=== PATIENT | male | born 1950 | race Caucasian/White ===

== ENCOUNTER → 2018-05-12 10:37 | Outpatient (CLI) | payer MEDICARE, OTHER, SELFPAY ==
--- NOTE | 2018-05-12 | DI.US.S_ITS ---
PROCEDURE: US ABD AORTA ANEURYSM SCREEN INDICATIONS: SCREENING AAA TECHNIQUE: Real time scanning was performed of the aorta and iliac arteries, with image documentation. COMPARISON: None. FINDINGS: Aorta: Proximal aortic diameter measures 2.0 cm. Mid-aorta measures 1.8 cm. Distal aortic diameter is 1.6 cm. Iliac arteries: Right common iliac artery measures 1.3 cm. Left common iliac artery measures 1.1 cm. IMPRESSION: Negative for aortic aneurysm Dictated by: Vladimir Boland M.D. on 05/12/2018 at 12:53 Approved by: Vladimir Boland M.D. on 05/12/2018 at 12:54
== END ==
PROVIDERS: Visit Provider Internal Medicine
DX: Z13.6 Encounter for screening for cardiovascular disorders (principal)
CPT/HCPCS: 76706

== ENCOUNTER → 2019-01-15 12:23 | Outpatient (CLI) | payer MEDICARE, OTHER, SELFPAY ==
--- NOTE | 2019-01-15 12:26 | DI.RAD.S_ITS ---
PROCEDURE: XR CHEST 2V INDICATIONS: cough TECHNIQUE: 2 views of the chest were acquired. COMPARISON: None. FINDINGS: Surgical changes and devices: None. Lungs and pleura: Lungs are clear. No pleural effusions or pneumothorax. There is asymmetric elevation of the right hemidiaphragm, likely chronic by appearance Mediastinum: Mediastinal contours are normal. Heart size is normal. Bones and chest wall: No suspicious bony abnormalities. Soft tissues appear unremarkable. IMPRESSION: Asymmetric right hemidiaphragm elevation, likely chronic. This results in mild right lung base atelectasis. No definite source of cough is seen. Dictated by: Kelvin Waters M.D. on 01/15/2019 at 12:48 Approved by: Kelvin Waters M.D. on 01/15/2019 at 12:48
== END ==
PROVIDERS: PCP Internal Medicine; Visit Provider Physician Assistant
DX: R05 Cough (principal); J98.11 Atelectasis
CPT/HCPCS: 71046

== ENCOUNTER → 2019-02-24 09:47 | Outpatient (CLI) | payer MEDICARE, OTHER, SELFPAY ==
--- NOTE | 2019-02-24 10:00 | DI.CT.S_ITS ---
PROCEDURE: CT SINUS SCREEN WO CON INDICATIONS: SINUSITIS TECHNIQUE: Noncontrast 3.0 mm axial images acquired from the frontal sinuses to the mid-sella, with coronal and sagittal reformats. For radiation dose reduction, the following was used: automated exposure control, adjustment of mA and/or kV according to patient size. COMPARISON: None. FINDINGS: Image quality: Excellent. Maxillary Sinuses: No bony remodeling or destruction. Sinuses are clear. Ethmoid Air Cells: No bony remodeling or destruction. Sinuses are clear. Sphenoid Sinuses: No bony remodeling or destruction. Sinuses are clear. Frontal Sinuses: No bony remodeling or destruction. Sinuses are clear. Ostiomeatal Complexes: Ostiomeatal complexes are patent. No Joanne cells. Miscellaneous: Visualized intra-orbital contents are normal. No moose bullosa or paradoxical turbinate curvature. Mild anterior lower leftward nasoseptal deviation without airway occlusion. A small nonossified spur is present anteriorly (series 4 image 28 and series 2 image 11). The mastoid cavity is are diminutive. There is small amount of fluid dependently in the right mastoid cavity. IMPRESSION: 1. No CT evidence of acute sinus or chronic sinus disease. 2. Minor leftward anterior nasal septal deviation. 3. Small right mastoid effusion Dictated by: Dyana Anand M.D. on 02/24/2019 at 12:52 Approved by: Dyana Anand M.D. on 02/24/2019 at 13:01
== END ==
PROVIDERS: Visit Provider Internal Medicine
DX: J32.0 Chronic maxillary sinusitis (principal)
CPT/HCPCS: 70486

== ENCOUNTER → 2019-07-12 07:54 | Outpatient (CLI) | payer MEDICARE, OTHER, SELFPAY ==
--- NOTE | 2019-07-12 | DI.ECHO.S_ITS ---
[facility] +---------+ [facility] +---------+ : : [address] : [place] : : : : [id number] : : : : Phone: [phone] Echocardiogram Report + + :Name: BERTRAM SIMS Study Date: 07/12/2019 Height: 68 in : :[facility] Exam Location: [facility] Weight: 247 lb : : Gender: Male BSA: 2.2 m2 : :: 1950 Age: 69 yrs BP: 152/85 mmHg: :Reason For Study: HTN : : Performed By: Alexy Barrientos : :Referring: ELY PRITCHETT : + + Interpretation Summary The left ventricle is normal in size. The ejection fraction is estimated to be 60-65%. There has been no significant change in LV EF since the previous study. The right ventricle is normal in size and function. There is mild tricuspid regurgitation. The right ventricular systolic pressure is estimated to be at least 32 mmHg based on an estimated right atrial pressure of 8 mm Hg. The ascending aorta is mildly enlarged. The patient was in atrial fibrillation with heart rates between 74-120 bpm during the exam. Procedure: A two-dimensional transthoracic echocardiogram with color flow and Doppler was performed. The study quality was technically adequate. Comparison is made with the echocardiogram of 07/23/15. The patient had a heart rate of 74-120 beats per minute. The patient was in atrial fibrillation with heart rates between 74-120 bpm during the exam. Left Ventricle: The left ventricle is normal in size. There is normal left ventricular wall thickness. There is no thrombus. The ejection fraction is estimated to be 60-65%. There has been no significant change since the previous study. There are no focal wall motion abnormalities. Diastolic function could not be accurately assessed due to atrial fibrillation. Right Ventricle: The right ventricle is normal in size and function. Atria: The left atrium is moderately dilated. The left atrium has mildly increased in size since the prior echo exam. Right atrial size is normal. The interatrial septum is intact with no evidence for an atrial septal defect. Mitral Valve: There is mild mitral annular calcification. The mitral valve leaflets are slightly calcified. There is trace mitral regurgitation. Aortic Valve: The aortic valve is trileaflet. The aortic valve opens well. The aortic valve is mildly calcified. There is discrete nodular thickening of the non- coronary cusp. No aortic regurgitation is present. Tricuspid Valve: The tricuspid valve is normal. There is mild tricuspid regurgitation. The right ventricular systolic pressure is estimated to be at least 32 mmHg based on an estimated right atrial pressure of 8 mm Hg. Pulmonic Valve: The pulmonic valve is not well seen, but is grossly normal. There is no pulmonic valvular regurgitation. Great Vessels: The aortic root is normal size. The ascending aorta is mildly enlarged. The pulmonary artery is normal size. The IVC is dilated (diameter is greater than 2.1 cm) yet it collapses greater than 50% with a sniff. This suggests a right atrial pressure of 8 mm Hg. Pericardium/ Pleura There is no pericardial effusion. There is no pleural effusion. MMode/2D Measurements & Calculations LVIDd: 4.9 cm LVOT diam: 2.3 cm LVIDs: 2.9 cm Ao root diam: 3.4 cm FS: 39.8 % Aortic Jxn: 2.4 cm EPSS: 0.25 cm asc Aorta Diam: 3.6 cm IVSd: 1.0 cm Ao Arch Diam (Prox Trans): 2.4 cm LVPWd: 0.75 cm LV roldan. diameter/BSA (cm/m^2): 2.2 LV sys. diameter/BSA (cm/m^2): 1.3 LA dimension: 4.0 cm RA long axis: 5.6 cm LA A2 area: 27.4 cm2 RA area: 21.4 cm2 LA A4 area: 24.6 cm2 RA vol: 69.6 ml LA length (vol): 6.1 cm RA : 31.1 ml/m2 LA vol: 93.1 ml IVC diam: 2.3 cm LA vol index: 41.7 ml/m2 Doppler Measurements & Calculations Ao V2 max: 142.0 cm/sec LVOT Max Som: 94.0 cm/sec Ao V2 mean: 113.8 cm/sec LV V1 max P.5 mmHg Ao max P.2 mmHg LV V1 VTI: 19.5 cm Ao mean P.5 mmHg JAMIN(I,D): 2.9 cm2 Ao V2 VTI: 27.6 cm JAMIN(V,D): 2.7 cm2 sev ratio: 0.71 JAMIN indexed to BSA (cm^2/m^2): 1.3 MV E max som: 94.1 cm/sec TR max som: 244.5 cm/sec MV A max som: 1.9 cm/sec TR max P.2 mmHg MV E/A: 50.7 PA V2 max: 82.7 cm/sec Med Peak E' Som: 6.2 cm/sec PA V2 mean: 63.2 cm/sec E/E' med: 15.1 PA mean P.7 mmHg Lat Peak E' Som: 9.7 cm/sec PA pr(Accel): 39.9 mmHg E/E' lat: 9.7 PA Accel Time: 0.09 sec E/e' average: 12.4 MV dec time: 0.14 sec [facility] 80.9 ml Reading Physician:06:15 PM
== END ==
PROVIDERS: PCP Internal Medicine; Visit Provider Internal Medicine
DX: I07.1 Rheumatic tricuspid insufficiency (principal); I10 Essential (primary) hypertension; I77.89 Other specified disorders of arteries and arterioles
CPT/HCPCS: 93306

== ENCOUNTER → 2019-08-10 10:23 | Outpatient (CLI) | payer MEDICARE, OTHER, SELFPAY ==
--- NOTE | 2019-08-10 | DI.RAD.S_ITS ---
PROCEDURE: XR CHEST 2V INDICATIONS: COUGH TECHNIQUE: 2 views of the chest were acquired. COMPARISON: [facility], CR, XR CHEST 2V, 01/15/2019, 12:31. FINDINGS: Surgical changes and devices: None. Lungs and pleura: Low lung volumes with scattered subsegmental atelectasis/scarring. No pleural effusions or pneumothorax. Mediastinum: Mediastinal contours are normal. Heart size is normal. Bones and chest wall: No suspicious bony abnormalities. Soft tissues appear unremarkable. IMPRESSION: No acute disease. Dictated by: Dm Ho M.D. on 08/10/2019 at 11:08 Approved by: Dm Ho M.D. on 08/10/2019 at 11:09
== END ==
PROVIDERS: PCP Internal Medicine; Visit Provider Internal Medicine
DX: R05 Cough (principal)
CPT/HCPCS: 71046

== ENCOUNTER → 2020-07-08 19:31 | Outpatient (ROUT) | payer MEDICARE, OTHER, SELFPAY ==
[2020-07-08 20:00] LABS: Add Manual Diff / Slide Review NO; Basophils Absolute Auto 100 /uL (0-100); Basophils Percent Auto 0.6 % (0-2); Eosinophils Absolute Auto 500 /uL (0-450); Eosinophils Percent Auto 3.9 % (2-4); Hematocrit 47.1 % (41-53); Hemoglobin 16.4 g/dL (13.5-17.5); Lymphocytes Absolute Auto 3700 /uL (1100-4500); Lymphocytes Percent Auto 27.4 % (25-40); Mean Corpuscular HGB Conc 34.8 % (30-36); Mean Corpuscular Hemoglobin 32.7 PG (26-34); Mean Corpuscular Volume 94.1 fL (80-100); Monocytes Absolute Auto 900 /uL (0-900); Monocytes Percent Auto 6.8 % (3-14); Neutrophils Absolute Auto 8200 /uL (1500-7000); Neutrophils Percent Auto 61.3 % (50-75); Platelet Count 254 X10^3/uL (150-400); Red Cell Distribution Width 13.2 % (11.6-14.8); White Blood Cell Count 13.5 X10^3/uL (4.5-11.0)
[2020-07-08 20:18] LABS: Alanine Aminotransferase 26 IU/L (<50); Albumin 4.4 g/dL (3.5-5.0); Albumin Globulin Ratio 1.5 (1.0-2.8); Alkaline Phosphatase 76 U/L (38-126); Aspartate Aminotransferase 31 IU/L (17-59); BUN Creatinine Ratio 15.3 (6-22); Bilirubin Total 1.6 mg/dL (0.2-1.3); Blood Urea Nitrogen 17 mg/dL (9-20); Calcium 9.6 mg/dL (8.4-10.2); Chloride 95 mmol/L (98-107); Cholesterol 149 mg/dL (140-199); Estimated Glomerular Filt Rate > 60.0 mL/min (>60); Glucose 114 mg/dL (80-110); HDL Cholesterol 47 mg/dL (40-60); HEMOLYSIS < 15 (0-50); LDL Cholesterol Calculated 56 mg/dL (<100); Potassium 3.6 mmol/L (3.4-5.1); Sodium 141 mmol/L (137-145); Total Protein 7.4 g/dL (6.3-8.2); Triglycerides 228 mg/dL (35-150)
[2020-07-08 20:48] LABS: Carbon Dioxide 40 mmol/L (22-32)
[2020-07-08 21:16] LABS: Free T4, Direct Thyroxine 1.06 ng/dL (0.78-2.19)
== END ==
PROVIDERS: PCP Internal Medicine; Visit Provider Internal Medicine
DX: M15.0 Primary generalized (osteo)arthritis (principal); I10 Essential (primary) hypertension; E03.9 Hypothyroidism, unspecified; E78.00 Pure hypercholesterolemia, unspecified
CPT/HCPCS: 80053; 80061; 84439; 84443; 85025

== ENCOUNTER 2020-07-11 17:30 | Inpatient (IN) | payer MEDICARE, OTHER, SELFPAY ==
[2020-07-11] VITALS (11 sets, daily range): BP systolic 115–144; BP diastolic 63–93; PULSE 79–109; RESP 16–19; TEMP 36.6–36.8; O2SAT 93–97; BMI 32.3
--- NOTE | 2020-07-11 19:19 | ED.ABDPAIN ---
HPI - Abdominal Pain General Chief Complaint: Abdominal Pain Stated Complaint: fever, vomiting Time Seen by Provider: 07/11/20 18:14 Source: patient and family Mode of arrival: Ambulatory Limitations: no limitations History of Present Illness HPI narrative: Patient here for complaints of 40 hours of right lower quadrant pain with subjective fever. Here with . One episode of nonbloody emesis after trying to drink water. Pain is reproducible right lower quadrant. It does not radiate. No urinary complaints. History cholecystectomy but no evident to me. No hematuria. No blood in urine or stools. Patient is on warfarin. History atrial fibrillation. NPO since yesterday evening complaint: abdominal pain Related Data Home Medications Medication Instructions Recorded Confirmed amlodipine 10 mg tablet 10 mg PO DAILY 01/15/19 07/11/20 aspirin 81 mg tablet,delayed 81 mg PO DAILY 01/15/19 07/11/20 release atorvastatin 20 mg tablet 20 mg PO DAILY 01/15/19 07/11/20 glucosamine HCl 1,500 mg tablet 1,500 mg PO DAILY 01/15/19 07/11/20 levothyroxine 112 mcg capsule 112 mcg PO DAILY 01/15/19 07/11/20 lisinopril 40 mg tablet 40 mg PO DAILY 01/15/19 07/11/20 metoprolol tartrate 50 mg tablet 50 mg PO BID 01/15/19 07/11/20 warfarin 5 mg tablet 5 mg PO DAILY 01/15/19 07/11/20 fluticasone propion-salmeterol 1 inh INHALATION BID 07/11/20 07/11/20 [Advair Diskus] hydrochlorothiazide 25 mg PO DAILY 07/11/20 07/11/20 potassium chloride 20 meq PO BID 07/11/20 07/11/20 Allergies Allergy/AdvReac Type Severity Reaction Status Date / Time No Known Drug Allergies Allergy Verified 07/11/20 17:33 Review of Systems Review of Systems Narrative: GENERAL: Denies chills, fatigue, malaise, complains fever, sweats. HEENT: Denies sinus pain, ear pain, sore throat, difficulty swallowing, dizziness. RESPIRATORY: Denies dyspnea, cough, wheezing, hemoptysis, sputum. CARDIOVASCULAR: Denies chest pain, palpitations, orthopnea, edema, GASTROINTESTINAL: Denies nausea, vomiting, abdominal pain, denies diarrhea, constipation, melena. : Denies dysuria, frequency, incontinence, hematuria, urinary retention. MUSCULOSKELETAL: denies weakness, joint pain, or bony pain SKIN: Denies rash, skin lesions NEUROLOGIC: Denies weakness, headache, numbness, change in speech, confusion, seizures, incoordination. PSYCHIATRIC: No concerning psychosocial issues. ROS Unobtainable: All systems reviewed & are unremarkable except as noted in HPI and below Patient History Medical History (Updated 07/11/20 @ 21:58 by Dawson Vu MD) Atrial fibrillation (Acute) Chronic anticoagulation (Acute) History of asthma (Acute) Hypertension (Acute) Hypothyroidism (Acute) Obesity determined by physical examination (Acute) Surgical History (Updated 07/11/20 @ 21:45 by Dawson Vu MD) H/O arthroscopic knee surgery (Acute) Family History (Updated 07/11/20 @ 21:46 by Dawson Vu MD) Mother Cancer Father Cancer Social History household members: spouse Smoking Status: Former smoker Smoking Status: Former smoker alcohol intake frequency: holidays/special occasions only Substance Use Type: does not use Exam Narrative Exam Narrative: GENERAL: patient appears stated age. Well-nourished, well-developed patient, in no distress, not toxic HEAD: Atraumatic. Normocephalic. EYES: Pupils equal round and reactive. Extraocular motions intact. No scleral icterus. No injection or drainage. ENT: Nose without bleeding, purulent drainage. Throat without erythema, tonsillar hypertrophy or exudate. Airway patent. NECK: Trachea midline. Non tender CARDIOVASCULAR: Regular rate and rhythm without murmurs, gallops, or rubs. RESPIRATORY: Clear to auscultation. Breath sounds equal bilaterally. No wheezes, rales, or rhonchi. GASTROINTESTINAL: Abdomen soft, reproducible right lower quadrant tenderness. Tenderness over the McBurney point. No CVA tenderness no flank tenderness. Normal bowel sounds. No peritoneal signs. EXTREMITIES: No edema or joint tenderness. BACK: Nontender without deformity or crepitance. No flank tenderness. NEURO: AOx4. SKIN: No rash or erythema of visible areas PSYCH: Not anxious, is cooperative Initial Vital Signs Initial Vital Signs: Vital Signs Temperature 97.8 F 07/11/20 17:33 Pulse Rate 79 07/11/20 17:33 Respiratory Rate 19 07/11/20 17:33 Blood Pressure 131/63 07/11/20 17:33 Pulse Oximetry 97 07/11/20 17:33 Course Course Course Narrative: pt will be admitted reviewed results with patient and . As well as surgeon. Surgeon is coming in to see patient now Decision to Admit Date: 07/11/20 Decision to Admit time: 20:44 Orders Ordered: ED Orders 07/11/20 18:14 Complete Blood Count AUTO DIFF Stat Comprehensive Metabolic Panel Stat Lipase Stat Partial Thromboplastin Time Stat Prothrombin Time INR Stat 07/11/20 19:18 CT abdomen pelvis w con Stat 07/11/20 19:50 COVID19 -ED/INPAT/OR/L&D Stat Acetaminophen (Tylenol) 650 mg PO Q6HR [facility] Last Admin: 07/12/20 00:13 Dose: 650 mg Documented by: TRISTAN Amlodipine Besylate (Norvasc) 10 mg PO DAILY [facility] Atorvastatin Calcium (Lipitor) 20 mg PO BEDTIME EMILIANO Gabapentin (Neurontin) 300 mg PO BID [facility] Hydrochlorothiazide (Hydrochlorothiazide) 25 mg PO DAILY [facility] Lactated Ringer's (Lactated Ringers) 1,000 mls @ 125 mls/hr IV CONT [facility] Last Admin: 07/11/20 23:55 Dose: 125 mls/hr Documented by: TRISTAN Piperacillin/Tazobactam/Dextrose (Zosyn) 3.375 gm in 50 mls @ 100 mls/hr IV Q8H [facility] Last Infusion: 07/11/20 23:38 Dose: 0 mls/hr Documented by: Admin: 07/11/20 23:08 Dose: 100 mls/hr Documented by: CINDY Potassium Chloride 40 meq/ (Sodium Chloride) 520 mls @ 130 mls/hr IV NOW ONE Stop: 07/12/20 03:33 Levothyroxine Sodium (Synthroid) 112 mcg PO 0600 [facility] Lisinopril (Zestril) 40 mg PO DAILY [facility] Metoprolol Tartrate (Lopressor) 50 mg PO BID [facility] Last Admin: 07/11/20 23:12 Dose: Not Given Documented by: CINDY Metoprolol Tartrate (Lopressor) 5 mg IV Q6H PRN PRN Reason: Heart Rate- High Morphine Sulfate (Morphine) 2 mg IV Q4HR PRN PRN Reason: Pain, Moderate (4-6) Naloxone HCl (Narcan) 0.2 mg IV Q2MIN PRN PRN Reason: Opiate Reversal Ondansetron HCl (Zofran) 4 mg IV Q4HR PRN PRN Reason: Nausea And Vomiting Last Admin: 07/11/20 23:07 Dose: 4 mg Documented by: CINDY Discontinued Medications Sodium Chloride (Normal Saline 0.9%) 1,000 mls @ 1,000 mls/hr IV BOLUS ONE Stop: 07/11/20 20:17 Last Infusion: 07/11/20 21:44 Dose: 0 mls/hr Documented by: Admin: 07/11/20 19:47 Dose: 1,000 mls/hr Documented by: ENE Piperacillin/Tazobactam/Dextrose (Zosyn) 3.375 gm in 50 mls @ 100 mls/hr IV NOW ONE Stop: 07/11/20 20:50 Last Infusion: 07/11/20 21:25 Dose: 0 mls/hr Documented by: Admin: 07/11/20 20:44 Dose: 100 mls/hr Documented by: QASIM Potassium Chloride 20 meq/ (Sodium Chloride) 260 mls @ 130 mls/hr IV NOW ONE Stop: 07/12/20 00:37 Last Admin: 07/12/20 00:09 Dose: Not Given Documented by: TRISTAN Magnesium Sulfate (Magnesium Sulfate) 2 gm in 50 mls @ 25 mls/hr IV NOW ONE Stop: 07/12/20 00:37 Last Admin: 07/11/20 23:38 Dose: 25 mls/hr Documented by: TRISTAN Cosigned by: LAKHWINDER Metoprolol Tartrate (Lopressor) 5 mg IV Q6H EMILIANO Stop: 07/11/20 23:59 Last Admin: 07/12/20 00:12 Dose: Not Given Documented by: TRISTAN Phytonadione (Vitamin K) 10 mg IM NOW ONE Stop: 07/11/20 21:47 Last Admin: 07/11/20 23:43 Dose: Not Given Documented by: TRISTAN Phytonadione (Vitamin K1) 10 mg SUBCUT NOW ONE Stop: 07/11/20 23:08 Last Admin: 07/11/20 23:37 Dose: 10 mg Documented by: TRISTAN Potassium Chloride (Klor-Con M20) 40 meq PO NOW ONE Stop: 07/11/20 22:39 Last Admin: 07/12/20 00:07 Dose: Not Given Documented by: TRISTAN Reevaluation(s) Reevaluation #1: No new complaints. Patient does not want anything for pain. No vomiting Time: 20:44 Consultations Consultation #1: Spoke with general surgery, dr vu, will see pt in er now Time: 20:45 Consultation #2: General surgery completed evaluation of patient in the emergency department, dr vu, orders for vitamin K 10 mg to be given here. Hospitalist to follow for medical management Time: :47 Consultation #3: Spoke with Fritz hospitalist, will follow up as consult Time: :47 Vital Signs Vital signs: Vital Signs - 8 hr 07/11/20 17:33 07/11/20 18:21 07/11/20 18:30 Temperature 97.8 F Pulse Rate 79 107 H 97 H Respiratory Rate 19 Blood Pressure 131/63 115/70 Pulse Oximetry 97 93 93 07/11/20 19:00 07/11/20 19:41 07/11/20 20:00 Temperature Pulse Rate 96 H 109 H 101 H Respiratory Rate Blood Pressure 118/73 Pulse Oximetry 93 95 93 07/11/20 20:30 07/11/20 21:45 Temperature Pulse Rate 107 H Respiratory Rate Blood Pressure 144/93 H Pulse Oximetry 94 96 MDM - Abdominal Pain Differential Diagnosis Differential diagnosis: Likely abdominal pain, acute appendicitis, calculus of kidney, diverticulitis and small bowel obstruction Lab Data Attestation: I reviewed the patient's lab results. Result diagrams: 07/11/20 18:14 07/11/20 18:14 Labs: Lab Results 07/11/20 07/11/20 07/11/20 Range/Units 18:14 18:14 18:14 WBC 18.9 H (4.5-11.0) X10^3/uL RBC 4.90 (4.5-5.9) X10^6/uL Hgb 16.3 (13.5-17.5) g/dL Hct 45.3 (41-53) % MCV 92.5 (80-100) fL MCH 33.2 (26-34) PG MCHC 35.9 (30-36) % RDW 13.1 (11.6-14.8) % Plt Count 198 (150-400) X10^3/uL Neut % (Auto) 86.7 H (50-75) % Lymph % (Auto) 7.8 L (25-40) % Waldo % (Auto) 5.0 (3-14) % Eos % (Auto) 0.3 L (2-4) % Baso % (Auto) 0.2 (0-2) % Neut # (Auto) 11584 H (2166-9500) /uL Lymph # (Auto) 1500 (8662-5851) /uL Waldo # (Auto) 900 (0-900) /uL Eos # (Auto) 100 (0-450) /uL Baso # (Auto) 0 (0-100) /uL PT 23.0 H (10.1-12.7) SECONDS INR 2.0 H (0.9-1.3) APTT 36 (26.4-36.2) SECONDS Sodium 133 L (137-145) mmol/L Potassium 3.3 L (3.4-5.1) mmol/L Chloride 88 L (98-107) mmol/L Carbon Dioxide 36 H (22-32) mmol/L BUN 35 H (9-20) mg/dL Creatinine 1.62 H (0.66-1.25) mg/dL Estimated GFR 42.2 L (>60) mL/min BUN/Creatinine Ratio 21.6 (6-22) Glucose 147 H (80-110) mg/dL Calcium 9.4 (8.4-10.2) mg/dL Magnesium (1.6-2.3) mg/dL Total Bilirubin 3.5 H (0.2-1.3) mg/dL AST 24 (17-59) IU/L ALT 25 (<50) IU/L Alkaline Phosphatase 88 (38-126) U/L Total Protein 8.1 (6.3-8.2) g/dL Albumin 4.4 (3.5-5.0) g/dL Globulin 3.7 (1.7-4.1) g/dL Albumin/Globulin Ratio 1.2 (1.0-2.8) Lipase 65 (23-300) U/L COVID-19 PCR (Negative) 07/11/20 07/11/20 Range/Units 18:14 19:50 WBC (4.5-11.0) X10^3/uL RBC (4.5-5.9) X10^6/uL Hgb (13.5-17.5) g/dL Hct (41-53) % MCV (80-100) fL MCH (26-34) PG MCHC (30-36) % RDW (11.6-14.8) % Plt Count (150-400) X10^3/uL Neut % (Auto) (50-75) % Lymph % (Auto) (25-40) % Waldo % (Auto) (3-14) % Eos % (Auto) (2-4) % Baso % (Auto) (0-2) % Neut # (Auto) (9249-7247) /uL Lymph # (Auto) (9878-9529) /uL Waldo # (Auto) (0-900) /uL Eos # (Auto) (0-450) /uL Baso # (Auto) (0-100) /uL PT (10.1-12.7) SECONDS INR (0.9-1.3) APTT (26.4-36.2) SECONDS Sodium (137-145) mmol/L Potassium (3.4-5.1) mmol/L Chloride (98-107) mmol/L Carbon Dioxide (22-32) mmol/L BUN (9-20) mg/dL Creatinine (0.66-1.25) mg/dL Estimated GFR (>60) mL/min BUN/Creatinine Ratio (6-22) Glucose (80-110) mg/dL Calcium (8.4-10.2) mg/dL Magnesium 1.3 L (1.6-2.3) mg/dL Total Bilirubin (0.2-1.3) mg/dL AST (17-59) IU/L ALT (<50) IU/L Alkaline Phosphatase (38-126) U/L Total Protein (6.3-8.2) g/dL Albumin (3.5-5.0) g/dL Globulin (1.7-4.1) g/dL Albumin/Globulin Ratio (1.0-2.8) Lipase (23-300) U/L COVID-19 PCR Negative (Negative) Imaging Data CT scan - abdomen/pelvis: Radiologist's Impression: [address] [address] [address] Scan Report Signed Patient: Brian Nino JMR#: [id number] : 1950Acct:[id number] Age/Sex: 70 / MDate of Service: 07/11/20 Loc: ED Accession Number: [id number] Procedure: CT abdomen pelvis w con Ordering Provider: Stephen Appiah MD PROCEDURE: CT ABDOMEN PELVIS W CON INDICATIONS: IV contrast only/right lower quadrant pain TECHNIQUE: After the administration of intravenous contrast, 5 mm thick sections acquired from the diaphragm to the symphysis. 5 mm coronal and sagittal reformats were acquired. For radiation dose reduction, the following was used: automated exposure control, adjustment of mA and/or kV according to patient size. COMPARISON: None. FINDINGS: Image quality: Excellent. ABDOMEN: Lung bases: Eventration of the right hemidiaphragm and right base atelectasis.. Heart size is normal. Heavy coronary artery calcification. Solid organs: Liver is normal in size and enhancement. Gallbladder is surgically absent and the intra and extrahepatic biliary system are mildly dilated. . Pancreas enhances normally. Spleen is normal in size and enhancement. No adrenal nodules. Kidneys demonstrate normal size and enhancement, without hydronephrosis. Small left lower pole cortical cyst. Peritoneum and bowel: Markedly dilated loops of small bowel throughout the abdomen are present with air-fluid levels and minor mesenteric congestion. There is an acute transition point in a small umbilical hernia. Distally small bowel loops are decompressed. Additionally, there is moderate inflammation around the appendix whose margins appear indistinct. The appendix is enlarged measuring 12 mm. No extraluminal gas or adjacent fluid. Nodes and vessels: No retroperitoneal or mesenteric adenopathy by size criteria. Aorta and inferior vena cava are normal in size. Moderate abdominal aortic atherosclerotic calcification. Miscellaneous: There are several anterior abdominal wall midline defects in the supraumbilical region, many containing non indurated fat, and one wide necked defect containing nonobstructed transverse colon. PELVIS: Genitourinary: Bladder wall thickness is normal. Miscellaneous: Small fat containing left inguinal hernia. No pelvic adenopathy. Bones: No suspicious bony lesions. No vertebral body compression fractures. There is grade 1 anterolisthesis L5 on S1 secondary to pars defects at the L5 level. Bridging osteophytosis and ankylosis in the lower thoracic spine and ankylosis of right sacroiliac joint. IMPRESSION: 1. Small-bowel obstruction secondary to an obstructing, bowel containing umbilical hernia. 2. Early acute appendicitis. 3. Post cholecystectomy with biliary dilatation. 4. Coronary and systemic atherosclerotic calcification. 5. Findings called to the emergency room at 20:14 hours. Dictated by: Dyana Anand M.D. on 07/11/2020 at 20:11 Approved by: Dyana Anand M.D. on 07/11/2020 at 20:22 [facility] Narrative Medical decision making narrative: Admitting patient for appendicitis. Surgeon coming to the emergency department to evaluate patient and look at the CT scan. Review for possible bowel obstruction Discharge Plan Departure Patient Disposition: Admitted As Inpatient Clinical Impression: Acute appendicitis Qualifiers: Acute appendicitis type: unspecified acute appendicitis type Qualified Code(s): K35.80 - Unspecified acute appendicitis Discharge Date/Time: 07/11/20 21:45 Referrals: Macho Dorantes MD [Primary Care Provider] - Admit Date/Time: 07/11/20 21:45 Admit Provider: Dawson Vu
[2020-07-11 19:31] LABS: Add Manual Diff / Slide Review NO; Basophils Absolute Auto 0 /uL (0-100); Basophils Percent Auto 0.2 % (0-2); Eosinophils Absolute Auto 100 /uL (0-450); Eosinophils Percent Auto 0.3 % (2-4); Hematocrit 45.3 % (41-53); Hemoglobin 16.3 g/dL (13.5-17.5); Lymphocytes Absolute Auto 1500 /uL (1100-4500); Lymphocytes Percent Auto 7.8 % (25-40); Mean Corpuscular HGB Conc 35.9 % (30-36); Mean Corpuscular Hemoglobin 33.2 PG (26-34); Mean Corpuscular Volume 92.5 fL (80-100); Monocytes Absolute Auto 900 /uL (0-900); Neutrophils Absolute Auto 16400 /uL (1500-7000); Neutrophils Percent Auto 86.7 % (50-75); Platelet Count 198 X10^3/uL (150-400); Red Cell Distribution Width 13.1 % (11.6-14.8); White Blood Cell Count 18.9 X10^3/uL (4.5-11.0)
[2020-07-11 19:35] LABS: Alanine Aminotransferase 25 IU/L (<50); Albumin 4.4 g/dL (3.5-5.0); Albumin Globulin Ratio 1.2 (1.0-2.8); Alkaline Phosphatase 88 U/L (38-126); Aspartate Aminotransferase 24 IU/L (17-59); BUN Creatinine Ratio 21.6 (6-22); Bilirubin Total 3.5 mg/dL (0.2-1.3); Blood Urea Nitrogen 35 mg/dL (9-20); Calcium 9.4 mg/dL (8.4-10.2); Carbon Dioxide 36 mmol/L (22-32); Chloride 88 mmol/L (98-107); Estimated Glomerular Filt Rate 42.2 mL/min (>60); Globulin 3.7 g/dL (1.7-4.1); Glucose 147 mg/dL (80-110); HEMOLYSIS < 15 (0-50); Lipase 65 U/L (23-300); Potassium 3.3 mmol/L (3.4-5.1); Sodium 133 mmol/L (137-145); Total Protein 8.1 g/dL (6.3-8.2)
[2020-07-11] MEDS: SODIUM CHLORIDE 0.9% 1,000 ML 1000 ML IV (19:47)
[2020-07-11 20:12] LABS: COVID19 -Nasal RAPID Negative (Negative)
[2020-07-11 20:29] LABS: PTT Partial Thromboplastin Tim 36 SECONDS (26.4-36.2)
[2020-07-11] MEDS: PIPERACILLIN-TAZO 3.375 GM/50 ML FROZ.PIGGY IV ×2 (20:44→23:08)
--- NOTE | 2020-07-11 21:39 | P.HP_ITS ---
History of Present Illness History of Present Illness Date Patient Seen: 07/11/20 Time Patient Seen: 21:39 Chief complaint: fever, vomiting Narrative: The patient is a gentleman with about a 40 hour history of diffuse mid abdominal pain and right lower quadrant pain. He has had the mid abdominal pain before unusually he does weights at out but the right lower quadrant pain is new and has lasted longer than the usual episodes he has of the diffuse abdominal pain. He vomited twice today no blood. He has passed no blood per rectum. His last colonoscopy was about 8 years ago. His mother had colon cancer. His believes he may have had a polyp removed in the distant past. He has had an open cholecystectomy in the distant past through a midline incisio n. He says that sometimes he has to massage his abdomen to push in bulges that occur in his mid abdomen. Patient History Medical History (Updated 07/11/20 @ 21:58 by Dawson Vu MD) Atrial fibrillation (Acute) Chronic anticoagulation (Acute) History of asthma (Acute) Hypertension (Acute) Hypothyroidism (Acute) Obesity determined by physical examination (Acute) Surgical History (Updated 07/11/20 @ 21:45 by Dawson Vu MD) H/O arthroscopic knee surgery (Acute) Family & Social History Family History (Updated 07/11/20 @ 21:46 by Dawson Vu MD) Mother Cancer Father Cancer Safety & Behavioral: Feels Safe in Current Yes Environment Tobacco & Substance use: Smoking Status Former smoker alcohol intake frequency holiday/special occasion Substance Use Type does not use Meds Home Medications and Allergies Home Medications Medication Instructions Recorded Confirmed Type amlodipine 10 mg tablet 10 mg PO DAILY 01/15/19 07/11/20 History aspirin 81 mg tablet,delayed 81 mg PO DAILY 01/15/19 07/11/20 History release atorvastatin 20 mg tablet 20 mg PO DAILY 01/15/19 07/11/20 History glucosamine HCl 1,500 mg tablet 1,500 mg PO DAILY 01/15/19 07/11/20 History levothyroxine 112 mcg capsule 112 mcg PO DAILY 01/15/19 07/11/20 History lisinopril 40 mg tablet 40 mg PO DAILY 01/15/19 07/11/20 History metoprolol tartrate 50 mg tablet 50 mg PO BID 01/15/19 07/11/20 History warfarin 5 mg tablet 5 mg PO DAILY 01/15/19 07/11/20 History fluticasone propion-salmeterol 1 inh INHALATION BID 07/11/20 07/11/20 History [Advair Diskus] hydrochlorothiazide 25 mg PO DAILY 07/11/20 07/11/20 History potassium chloride 20 meq PO BID 07/11/20 07/11/20 History Allergies Allergy/AdvReac Type Severity Reaction Status Date / Time No Known Drug Allergies Allergy Verified 07/11/20 17:33 Review of Systems Review of Systems Narrative: Patient denies visual difficulties double vision pain is eyes earache sore throats trouble swallowing. Patient denies any tooth aches. No cough or cold. He was diagnosed in the past with asthma but does not use an inhaler. This apparently was diagnosed during a lung infection. He uses an inhaler. Patient has midsternal chest pain that lasts a few seconds every great once in a while. No persistent pain. He has been in atrial fibrillation for 3 years and is anticoagulated. Reports having a recent normal echocardiogram except for AFib. Patient has had no black or bloody bowel movements. Last colonoscopy 8 years ago. No urinary difficulties. No blood in his urine. No trouble starting or stopping. He has no seizures or blackouts. No anxiety or depression. Patient does take medicine for his thyroid. He has no pancreas problems he is aware of. No new skin lesions or problems with his skin for with rashes. Exam Vital Signs (past 8 hours): - 07/11/20 17:33 07/11/20 18:21 07/11/20 18:30 Temperature 97.8 F Pulse Rate 79 107 H 97 H Respiratory Rate 19 Blood Pressure 131/63 115/70 Pulse Oximetry 97 93 93 07/11/20 19:00 07/11/20 19:41 07/11/20 20:00 Temperature Pulse Rate 96 H 109 H 101 H Respiratory Rate Blood Pressure 118/73 Pulse Oximetry 93 95 93 Oxygen Delivery Method Room Air Narrative Exam Narrative: Cooperative in no apparent distress. Vital signs are noted. Eyes are nonicteric. Pupils round reactive to light. Conjunctivae are pink. Ears without lesion. Nasal septum is midline. Oral mucosa is pink and moist there are no open lesions. Teeth are intact. His lungs are clear to auscultation without rales or rhonchi in equal percussion. No bruit in the neck. Heart irregularly irregular rate and rhythm without murmur gallop. There are no masses or nodes in the neck or supraclavicular areas. His abdomen is protuberant. May be slightly distended though he does not seem to think so. He has some obvious hernias in his abdominal wall above his umbilicus. The contents of these hernias are soft and nontender. He has a small tender defect at the umbilicus that I was able to reduce. His pain went away in that area when I push the hernia back in. Patient has some mild tenderness in the right lower quadrant. The remainder of his abdomen is soft and nontender. The patient is alert and oriented x3. Speech rate and content are appropriate. Affect is appropriate. Patient has 2+ pedal pulses on the right foot and he cannot feel left dorsalis pedis but he does have a 1 to 2+ left tibialis posterior. Popliteal pulses are 2+ bilaterally but that on the right is slightly stronger than the while on left. His lower legs are hairless. He has skin changes suggesting prior edema. There is no pitting at this time. Objective Labs Result Diagrams: 07/11/20 18:14 07/11/20 18:14 Labs: Laboratory Results - last 24 hr 07/11/20 07/11/20 07/11/20 18:14 18:14 18:14 WBC 18.9 H RBC 4.90 Hgb 16.3 Hct 45.3 MCV 92.5 MCH 33.2 MCHC 35.9 RDW 13.1 Plt Count 198 Neut % (Auto) 86.7 H Lymph % (Auto) 7.8 L [place] % (Auto) 5.0 Eos % (Auto) 0.3 L Baso % (Auto) 0.2 Neut # (Auto) 94567 H Lymph # (Auto) 1500 [place] # (Auto) 900 Eos # (Auto) 100 Baso # (Auto) 0 PT 23.0 H INR 2.0 H APTT 36 Sodium 133 L Potassium 3.3 L Chloride 88 L Carbon Dioxide 36 H BUN 35 H Creatinine 1.62 H Estimated GFR 42.2 L BUN/Creatinine Ratio 21.6 Glucose 147 H Calcium 9.4 Total Bilirubin 3.5 H AST 24 ALT 25 Alkaline Phosphatase 88 Total Protein 8.1 Albumin 4.4 Globulin 3.7 Albumin/Globulin Ratio 1.2 Lipase 65 COVID-19 PCR 07/11/20 19:50 WBC RBC Hgb Hct MCV MCH MCHC RDW Plt Count Neut % (Auto) Lymph % (Auto) [place] % (Auto) Eos % (Auto) Baso % (Auto) Neut # (Auto) Lymph # (Auto) [place] # (Auto) Eos # (Auto) Baso # (Auto) PT INR APTT Sodium Potassium Chloride Carbon Dioxide BUN Creatinine Estimated GFR BUN/Creatinine Ratio Glucose Calcium Total Bilirubin AST ALT Alkaline Phosphatase Total Protein Albumin Globulin Albumin/Globulin Ratio Lipase COVID-19 PCR Negative Assessment & Plan Assessment and plan (1) Acute appendicitis: Problem details: Patient's physical findings and elevated white blood cell count and CT scan are all consistent with acute appendicitis. Being that he his nontender in most of his abdomen suggests that this is not perforated. I talked to him about the possibility of antibiotic treatment versus operative treatment. I explained the risks and benefits of each. He likes the idea of treating with antibiotics initially and being followed. In this case it is ideal as I correct his coagulopathy from his warfarin. Even if corrected he may not ever need an operation. If he came to operation of probably repair the umbilical defect at the same time as that operation. Qualifiers: Acute appendicitis type: unspecified acute appendicitis type Qualified Code(s): K35.80 - Unspecified acute appendicitis Status: Acute (2) Incisional hernia with bowel obstruction: Problem details: Patient has multiple incisional hernias of his ventral wall. The ideal adonis atment I believe for this would be a laparoscopic hernia repair with underlay of him but she did mesh under these at least 3 hernias. I think of successfully reduced the small bowel from the umbilical hernia which was causing the small bowel obstruction. Will re-evaluate with x-rays in the morning. Status: Acute (3) Obesity determined by physical examination: Problem details: Will talk to him about weight loss. His BMI is 32. Status: Acute (4) Hypertension: Problem details: Patient will be continued on blood pressure medicine. Status: Acute (5) Atrial fibrillation: Problem details: We will reverse his warfarin with vitamin K. I have asked the emergency room physician to order 10 mg subcu now. Will repeat his coags in the morning. Will continue beta-blockade to control his heart rate. Status: Acute (6) Hypothyroidism: Problem details: Will continue his levothyroxine to treat his hypothyroidism. Status: Acute (7) Chronic anticoagulation: Problem details: Will hold his warfarin for now. Resume it when he has processes are on the way to resolution. Status: Acute
[2020-07-11 22:30] LABS: Magnesium 1.3 mg/dL (1.6-2.3)
[2020-07-11] MEDS: ONDANSETRON 4 MG/2 ML INJ IV (23:07)
[2020-07-11] MEDS: METOPROLOL IR 50 MG TABLET PO (23:08)
[2020-07-11] MEDS: PHYTONADIONE (VIT K1) 10 MG/ML AMP SUBCUT (23:37)
[2020-07-11] MEDS: MAGNESIUM SULFATE 2 GM/50 ML PIGGYBACK IV (23:38)
--- NOTE | 2020-07-11 23:50 | PC.NURSE ---
Evening Shift Note Patient had not been given Vitamin K in ER and order discontinued. Patient also complaining of discomfort. Paged long goods drier MD Vu, verbal orders to give Vitamin K STAT and addition of morphine to MAR. Orders entered and carried out by this RN and date night caregiver RN Farida.
[2020-07-11] MEDS: LACTATED RINGERS 1,000 ML 125 ML IV (23:55)
[2020-07-12] VITALS (16 sets, daily range): BP systolic 96–138; BP diastolic 64–85; PULSE 94–113; RESP 14–20; TEMP 36.3–37.6; O2SAT 90–95
[2020-07-12] MEDS: ACETAMINOPHEN 325 MG TABLET 650 MG PO ×3 (00:13→17:47)
--- NOTE | 2020-07-12 01:27 | PM.HP.1 ---
History of Present Illness History of Present Illness Date Patient Seen: 07/11/20 Time Patient Seen: 22:15 Chief complaint: fever, vomiting Patient History Medical History (Updated 07/11/20 @ 21:58 by Dawson Vu MD) Atrial fibrillation (Acute) Chronic anticoagulation (Acute) History of asthma (Acute) Hypertension (Acute) Hypothyroidism (Acute) Obesity determined by physical examination (Acute) Surgical History (Updated 07/11/20 @ 21:45 by Dawson Vu MD) H/O arthroscopic knee surgery (Acute) Family & Social History Family History (Updated 07/11/20 @ 21:46 by Dawson Vu MD) Mother Cancer Father Cancer Social History: household members spouse Safety & Behavioral: Feels Safe in Current Yes Environment Been Physically Hurt or No Threatened By a Person Suicidal Ideation Description None Suicide Plan Description No Plan Tobacco & Substance use: Smoking Status Former smoker alcohol intake frequency holiday/special occasion Substance Use Type does not use Meds Home Medications and Allergies Home Medications Medication Instructions Recorded Confirmed Type amlodipine 10 mg tablet 10 mg PO DAILY 01/15/19 07/11/20 History aspirin 81 mg tablet,delayed 81 mg PO DAILY 01/15/19 07/11/20 History release atorvastatin 20 mg tablet 20 mg PO DAILY 01/15/19 07/11/20 History glucosamine HCl 1,500 mg tablet 1,500 mg PO DAILY 01/15/19 07/11/20 History levothyroxine 112 mcg capsule 112 mcg PO DAILY 01/15/19 07/11/20 History lisinopril 40 mg tablet 40 mg PO DAILY 01/15/19 07/11/20 History metoprolol tartrate 50 mg tablet 50 mg PO BID 01/15/19 07/11/20 History warfarin 5 mg tablet 5 mg PO DAILY 01/15/19 07/11/20 History fluticasone propion-salmeterol 1 inh INHALATION BID 07/11/20 07/11/20 History [Advair Diskus] hydrochlorothiazide 25 mg PO DAILY 07/11/20 07/11/20 History potassium chloride 20 meq PO BID 07/11/20 07/11/20 History Allergies Allergy/AdvReac Type Severity Reaction Status Date / Time No Known Drug Allergies Allergy Verified 07/11/20 17:33 Exam Vital Signs (past 8 hours): - 07/11/20 17:33 07/11/20 18:21 07/11/20 18:30 Temperature 97.8 F Pulse Rate 79 107 H 97 H Respiratory Rate 19 Blood Pressure 131/63 115/70 Pulse Oximetry 97 93 93 07/11/20 19:00 07/11/20 19:41 07/11/20 20:00 Temperature Pulse Rate 96 H 109 H 101 H Respiratory Rate Blood Pressure 118/73 Pulse Oximetry 93 95 93 07/11/20 20:30 07/11/20 21:45 07/11/20 22:40 Temperature 98.2 F Pulse Rate 107 H 106 H Respiratory Rate 18 Blood Pressure 144/93 H 140/75 Pulse Oximetry 94 96 96 07/11/20 22:59 07/11/20 23:35 Temperature 98.0 F Pulse Rate 104 H Respiratory Rate 16 Blood Pressure 123/72 Pulse Oximetry 96 94 Oxygen Delivery Method Room Air Oxygen Flow Rate 0 Objective Labs Result Diagrams: 07/11/20 18:14 07/11/20 18:14 Labs: Laboratory Results - last 24 hr 07/11/20 07/11/20 07/11/20 18:14 18:14 18:14 WBC 18.9 H RBC 4.90 Hgb 16.3 Hct 45.3 MCV 92.5 MCH 33.2 MCHC 35.9 RDW 13.1 Plt Count 198 Neut % (Auto) 86.7 H Lymph % (Auto) 7.8 L [place] % (Auto) 5.0 Eos % (Auto) 0.3 L Baso % (Auto) 0.2 Neut # (Auto) 24203 H Lymph # (Auto) 1500 [place] # (Auto) 900 Eos # (Auto) 100 Baso # (Auto) 0 PT 23.0 H INR 2.0 H APTT 36 Sodium 133 L Potassium 3.3 L Chloride 88 L Carbon Dioxide 36 H BUN 35 H Creatinine 1.62 H Estimated GFR 42.2 L BUN/Creatinine Ratio 21.6 Glucose 147 H Calcium 9.4 Magnesium Total Bilirubin 3.5 H AST 24 ALT 25 Alkaline Phosphatase 88 Total Protein 8.1 Albumin 4.4 Globulin 3.7 Albumin/Globulin Ratio 1.2 Lipase 65 COVID-19 PCR 07/11/20 07/11/20 18:14 19:50 WBC RBC Hgb Hct MCV MCH MCHC RDW Plt Count Neut % (Auto) Lymph % (Auto) [place] % (Auto) Eos % (Auto) Baso % (Auto) Neut # (Auto) Lymph # (Auto) [place] # (Auto) Eos # (Auto) Baso # (Auto) PT INR APTT Sodium Potassium Chloride Carbon Dioxide BUN Creatinine Estimated GFR BUN/Creatinine Ratio Glucose Calcium Magnesium 1.3 L Total Bilirubin AST ALT Alkaline Phosphatase Total Protein Albumin Globulin Albumin/Globulin Ratio Lipase COVID-19 PCR Negative
[2020-07-12] MEDS: POTASSIUM CHLORIDE 40 MEQ in SODIUM CHLORIDE 0.9% 500 ML 130 ML IV (01:45)
--- NOTE | 2020-07-12 04:59 | PM.CN ---
History of Present Illness Consult details Date Patient Seen: 07/11/20 Time Patient Seen: 22:15 Chief complaint: fever, vomiting Reason for consult: Acute appendicitis with multiple comorbid conditions Requesting provider: Dawson Vu Narrative: Mr. Brian Nino is a 70-year-old male with a past medical history significant for chronic atrial fibrillation anticoagulated on warfarin, hypertension, hypothyroidism and ventral hernia who presents to the ER with abdominal pain. Patient reports lower abdominal pain for 2 days described as initially mid dominant and generalize localizing to the right lower quadrant. The patient states initially thought was ?a GI bug? that resolves in a couple days however report presents to the ER due to not getting better. Patient describes a change in bowel habits with soft and watery stools without hematochezia or melena. He reports last bowel movement was today please noticed a decreased frequencies stooling. He does have a history of ventral hernia as result of open cholecystectomy in midline incision and he states he has been able to reduce his hernia previously. He denies any complaints of fevers or chills and has no nasal congestion or sore throat. He denies chest pain or palpitations and does not notice his atrial fibrillation., shortness of breath cough or wheezing. He has abdominal pain and bowel movements as above. He denies complaints he urinary symptoms. He is typically independent in his activities of daily living. Upon arrival to the ER the patient is afebrile with temperature 97.8?, heart rate is 79, blood pressure 131/63, respirations of 19 saturating 97% on room air. A CT of the abdomen pelvis identifies a small-bowel obstruction secondary to bowel containing umbilical hernia, bowel loops with air-fluid levels, early appendicitis, status post cholecystectomy with biliary ductal dilatation, coronary and systemic atherosclerosis. On laboratory analysis the patient has elevated white count 18.9 with increased neutrophils at 86.7%, hemoglobin of 16.3, hematocrit of 45.3 and platelets of 198. He has a PT of 23, INR 2.0 and a PTT of 36. His sodium is 133 and his potassium is 3.3. His BUN is 35 and has a creatinine of 1.63. His nonfasting glucose is 147. He has an elevated bilirubin at 3.5, AST of 24, ALT 25 and alkaline phosphatase of 88. His covered screening is negative. Dr. Vu is contacted and will admit the patient. Dr. Vu requested vitamin K 10 mg and Zosyn 3.375 g IV. The hospitalist service was asked to consult to assist in management of comorbid conditions. Meds Home Medications and Allergies Home Medications Medication Instructions Recorded Confirmed Type amlodipine 10 mg tablet 10 mg PO DAILY 01/15/19 07/11/20 History aspirin 81 mg tablet,delayed 81 mg PO DAILY 01/15/19 07/11/20 History release atorvastatin 20 mg tablet 20 mg PO DAILY 01/15/19 07/11/20 History glucosamine HCl 1,500 mg tablet 1,500 mg PO DAILY 01/15/19 07/11/20 History levothyroxine 112 mcg capsule 112 mcg PO DAILY 01/15/19 07/11/20 History lisinopril 40 mg tablet 40 mg PO DAILY 01/15/19 07/11/20 History metoprolol tartrate 50 mg tablet 50 mg PO BID 01/15/19 07/11/20 History warfarin 5 mg tablet 5 mg PO DAILY 01/15/19 07/11/20 History fluticasone propion-salmeterol 1 inh INHALATION BID 07/11/20 07/11/20 History [Advair Diskus] hydrochlorothiazide 25 mg PO DAILY 07/11/20 07/11/20 History potassium chloride 20 meq PO BID 07/11/20 07/11/20 History Allergies Allergy/AdvReac Type Severity Reaction Status Date / Time No Known Drug Allergies Allergy Verified 07/11/20 17:33 Review of Systems Review of Systems ROS: Yes All systems reviewed with the patient and are negative except as otherwise documented Exam Vital Signs (past 8 hours): - 07/11/20 21:45 07/11/20 22:40 07/11/20 22:59 Temperature 98.2 F Pulse Rate 106 H Respiratory Rate 18 Blood Pressure 144/93 H 140/75 Pulse Oximetry 96 96 96 07/11/20 23:35 07/12/20 04:01 07/12/20 04:05 Temperature 98.0 F 97.4 F L Pulse Rate 104 H 104 H Respiratory Rate 16 16 Blood Pressure 123/72 131/67 Pulse Oximetry 94 92 92 Oxygen Delivery Method Room Air Oxygen Flow Rate 0 Narrative Exam Narrative: GENERAL APPEARANCE: well developed, well nourished, in no acute distress. HEENT: Normocephalic, PERRLA, conjunctiva clear, EOMs intact without nystagmus, no sinus tenderness to percussion, no rhinorrhea, mucous membranes are moist and pink without lesions or exudate. NECK/THYROID: neck supple, no JVD, no carotid bruit, no thyromegaly, trachea midline. LYMPH NODES: no cervical or supraclavicular lymphadenopathy. SKIN: [place], warm and dry, no visible lesions, rashes, ulcerations or petechiae. HEART: regular rate and rhythm, S1-S2, no murmur, no rubs or gallops, brisk capillary refill, no edema LUNGS: clear to auscultation bilaterally, no coarseness crackles or wheezing, no cough present CHEST: Symmetrical movement, no accessory muscle use, good tidal volume. ABDOMEN: Soft, no distention, abdominal pain on palpation, no peritoneal signs, no organomegaly, no flank or suprapubic tenderness, active bowel tones. BACK: Normal curvature, nontender to palpation, no CVA tenderness on percussion EXTREMITIES: moves all extremities, strength is 5/5 and symmetrical, no deformities or joint effusions. NEUROLOGIC: AAO x4, no focal neurologic deficits, cranial nerves II-XII grossly intact, sensation intact to light touch, hearing grossly normal to speech. PSYCH: Good judgment, linear thought process, cooperative, appropriate with stable behavior Objective Labs Result Diagrams: 07/11/20 18:14 07/11/20 18:14 Labs: Laboratory Results - last 24 hr 07/11/20 07/11/20 07/11/20 18:14 18:14 18:14 WBC 18.9 H RBC 4.90 Hgb 16.3 Hct 45.3 MCV 92.5 MCH 33.2 MCHC 35.9 RDW 13.1 Plt Count 198 Neut % (Auto) 86.7 H Lymph % (Auto) 7.8 L [place] % (Auto) 5.0 Eos % (Auto) 0.3 L Baso % (Auto) 0.2 Neut # (Auto) 77210 H Lymph # (Auto) 1500 [place] # (Auto) 900 Eos # (Auto) 100 Baso # (Auto) 0 PT 23.0 H INR 2.0 H APTT 36 Sodium 133 L Potassium 3.3 L Chloride 88 L Carbon Dioxide 36 H BUN 35 H Creatinine 1.62 H Estimated GFR 42.2 L BUN/Creatinine Ratio 21.6 Glucose 147 H Calcium 9.4 Magnesium Total Bilirubin 3.5 H AST 24 ALT 25 Alkaline Phosphatase 88 Total Protein 8.1 Albumin 4.4 Globulin 3.7 Albumin/Globulin Ratio 1.2 Lipase 65 COVID-19 PCR 07/11/20 07/11/20 18:14 19:50 WBC RBC Hgb Hct MCV MCH MCHC RDW Plt Count Neut % (Auto) Lymph % (Auto) [place] % (Auto) Eos % (Auto) Baso % (Auto) Neut # (Auto) Lymph # (Auto) [place] # (Auto) Eos # (Auto) Baso # (Auto) PT INR APTT Sodium Potassium Chloride Carbon Dioxide BUN Creatinine Estimated GFR BUN/Creatinine Ratio Glucose Calcium Magnesium 1.3 L Total Bilirubin AST ALT Alkaline Phosphatase Total Protein Albumin Globulin Albumin/Globulin Ratio Lipase COVID-19 PCR Negative Assessment & Plan Assessment & Plan narrative: This is a 70-year-old male patient who presents to the ER with 2 days of generalized abdominal pain localizing to the right lower quadrant. 1. Acute abdominal pain, present on admission, active -patient is found to have early appendicitis on CT scan as well as small-bowel obstruction secondary to bowel containing umbilical hernia. -surgical management per the primary team. -patient receiving Zosyn 3.375 g IV every 8 hours. -patient is NPO except for medications 2. Chronic Atrial fibrillation, present on admission, stable -patient is placed on telemetry for cardiac monitoring with heart rate variable from 80s to 110s. The patient denies complaints of chest pain or shortness of breath and is unaware of his cardiac irregularity. -last echocardiogram was completed on 07/12/2019 or with findings of ejection fraction of 60-65% with normal LV size and function, normal RV size and function mild tricuspid regurgitation with estimated right systolic pressure of 32 and right atrial pressure of 8. -patient is hypokalemic with a potassium of 3.3 which is repleted with 40 mEq of KCl cautiously in the setting of elevated creatinine of 1.62. Will obtain a magnesium level. -patient is NPO except for medication continue home regimen of metoprolol tartrate 50 mg twice daily. Ordered metoprolol tartrate 5 mg IV as needed for sustained heart rate greater than 120. 3. Long-term anticoagulation on warfarin, chronic, stable. -therapeutic INR at 2.0 on admission labs. -patient's warfarin is being held for possible surgery, patient received vitamin K 10 units subcu and will consider bridging with Lovenox depending on surgical plans. 4. Hypertension, chronic, stable -patient's blood pressure is adequately controlled blood pressure 130s over 160s. -the patient is NPO except for medication, continue patient's home regimen of amlodipine 10 mg daily, lisinopril 40 mg daily and metoprolol tartrate 50 mg twice daily. 5. Asthma, chronic, stable -no complaints of shortness of breath cough, no wheezing evident on exam. -continue Advair Diskus twice daily 6. Hypothyroidism, chronic, stable. -patient had thyroid labs on 07/08/2020 finding TSH 9.4 and a free T4 of 1.06. -continue patient's home regimen of levothyroxine 112 mcg daily. 7. Hyperlipidemia, chronic, stable. -continue home regimen of atorvastatin [address] thank Dr. Vu for allowing us to participate in the care of this gentleman, we will continue to follow. COVID-19 COVID-19 status: Negative Result date/Date tested (Pos, Neg/Pending): 07/11/20
[2020-07-12 05:22] LABS: Add Manual Diff / Slide Review NO; Basophils Absolute Auto 0 /uL (0-100); Basophils Percent Auto 0.3 % (0-2); Eosinophils Absolute Auto 100 /uL (0-450); Eosinophils Percent Auto 0.7 % (2-4); Hematocrit 45.3 % (41-53); Hemoglobin 16.2 g/dL (13.5-17.5); Lymphocytes Absolute Auto 1600 /uL (1100-4500); Lymphocytes Percent Auto 10.6 % (25-40); Mean Corpuscular HGB Conc 35.8 % (30-36); Mean Corpuscular Hemoglobin 33.1 PG (26-34); Mean Corpuscular Volume 92.3 fL (80-100); Monocytes Absolute Auto 1000 /uL (0-900); Monocytes Percent Auto 6.9 % (3-14); Neutrophils Absolute Auto 12300 /uL (1500-7000); Neutrophils Percent Auto 81.5 % (50-75); Platelet Count 189 X10^3/uL (150-400); Red Cell Distribution Width 13.4 % (11.6-14.8); White Blood Cell Count 15.1 X10^3/uL (4.5-11.0)
[2020-07-12 05:30] LABS: Alanine Aminotransferase 25 IU/L (<50); Albumin Globulin Ratio 1.2 (1.0-2.8); Alkaline Phosphatase 85 U/L (38-126); Aspartate Aminotransferase 23 IU/L (17-59); Bilirubin Total 2.9 mg/dL (0.2-1.3); Blood Urea Nitrogen 32 mg/dL (9-20); Calcium 8.9 mg/dL (8.4-10.2); Carbon Dioxide 38 mmol/L (22-32); Chloride 93 mmol/L (98-107); Globulin 3.4 g/dL (1.7-4.1); Glucose 135 mg/dL (80-110); HEMOLYSIS < 15 (0-50); Magnesium 2.3 mg/dL (1.6-2.3); Potassium 3.6 mmol/L (3.4-5.1); Sodium 137 mmol/L (137-145); Total Protein 7.4 g/dL (6.3-8.2)
[2020-07-12 05:35] LABS: PTT Partial Thromboplastin Tim 35 SECONDS (26.4-36.2)
[2020-07-12 05:43] LABS: Prothrombin Time 23.3 SECONDS (10.1-12.7)
[2020-07-12] MEDS: ONDANSETRON 4 MG/2 ML INJ IV (05:46)
--- NOTE | 2020-07-12 06:00 | DI.RAD.S_ITS ---
PROCEDURE: XR ACUTE ABDOMEN SERIES INDICATIONS: f/u sbo TECHNIQUE: One view chest and four views of the abdomen were acquired. COMPARISON: [facility], CR, XR CHEST 2V, 08/10/2019, 10:24. [facility], CT, CT ABDOMEN PELVIS W CON, 07/11/2020, 19:32. FINDINGS: Surgical changes and devices: Cholecystectomy clips are present.. Chest: Mild stable elevation of the right hemidiaphragm. Lungs are clear. Heart size is normal. No pleural effusions. No pneumoperitoneum. Abdomen: Dilated air-filled loops of small bowel are seen predominantly within the upper abdomen with air-fluid levels in the central abdomen, compatible with small bowel obstruction as seen on the CT from the day prior. Visualized solid organ contours appear normal. Contrast material within the bladder is likely related to the prior CT. Bones: No suspicious bony lesions. IMPRESSION: Dilated air-filled loops of small bowel throughout the upper abdomen are compatible with known small bowel obstruction. Dictated by: Byron Beltre M.D. on 07/12/2020 at 9:27 Approved by: Byron Beltre M.D. on 07/12/2020 at 9:32
[2020-07-12] MEDS: PIPERACILLIN-TAZO 3.375 GM/50 ML FROZ.PIGGY IV ×3 (06:18→21:46)
[2020-07-12] MEDS: LEVOTHYROXINE 112 MCG TABLET PO (06:18)
[2020-07-12] MEDS: METOPROLOL TARTRATE 5 MG/5 ML INJ IV ×2 (09:20→17:47)
[2020-07-12] MEDS: lisinopriL 20 MG TABLET 40 MG PO (09:25)
[2020-07-12] MEDS: AMLODIPINE 5 MG TABLET 10 MG PO (09:25)
[2020-07-12] MEDS: hydroCHLOROthiazide 25 MG TABLET PO (09:25)
[2020-07-12] MEDS: GABAPENTIN 300 MG CAPSULE PO ×2 (09:25→21:08)
--- NOTE | 2020-07-12 10:03 | P.PN_ITS ---
Subjective Subjective Date Patient Seen: 07/12/20 Time Patient Seen: 09:03 Interval history: The patient feels a little better than yesterday. Still having some abdominal pain. Had multiple episodes of emesis through the night. No chest pain or no shortness of breath. No difficulty urinating. Exam Vital Signs (past 8 hours): - 07/12/20 04:01 07/12/20 04:05 07/12/20 08:05 Temperature 97.4 F L 97.5 F L Pulse Rate 104 H 94 H Respiratory Rate 16 20 Blood Pressure 131/67 119/71 Pulse Oximetry 92 92 94 Oxygen Delivery Method Room Air Oxygen Flow Rate 0 Narrative Exam Narrative: Cooperative no apparent distress. Vital signs noted. Lungs are clear to auscultation with good air movement. Heart irregularly irregular without murmur gallop. Abdomen is protuberant and may be distended and soft. No tenderness today in the right lower quadrant which had been present at admission last night. Hernia at the umbilicus a sterile reducible and mildly tender no redness. Really no contents to speak of except for what feels like a little bit of fat. Objective Labs Result Diagrams: 07/12/20 04:51 07/12/20 04:51 Labs: Laboratory Results - last 24 hr 07/11/20 07/11/20 07/11/20 18:14 18:14 18:14 WBC 18.9 H RBC 4.90 Hgb 16.3 Hct 45.3 MCV 92.5 MCH 33.2 MCHC 35.9 RDW 13.1 Plt Count 198 Neut % (Auto) 86.7 H Lymph % (Auto) 7.8 L [place] % (Auto) 5.0 Eos % (Auto) 0.3 L Baso % (Auto) 0.2 Neut # (Auto) 51312 H Lymph # (Auto) 1500 [place] # (Auto) 900 Eos # (Auto) 100 Baso # (Auto) 0 PT 23.0 H INR 2.0 H APTT 36 Sodium 133 L Potassium 3.3 L Chloride 88 L Carbon Dioxide 36 H BUN 35 H Creatinine 1.62 H Estimated GFR 42.2 L BUN/Creatinine Ratio 21.6 Glucose 147 H Calcium 9.4 Magnesium Total Bilirubin 3.5 H AST 24 ALT 25 Alkaline Phosphatase 88 Total Protein 8.1 Albumin 4.4 Globulin 3.7 Albumin/Globulin Ratio 1.2 Lipase 65 COVID-19 PCR 07/11/20 07/11/20 07/12/20 18:14 19:50 04:51 WBC RBC Hgb Hct MCV MCH MCHC RDW Plt Count Neut % (Auto) Lymph % (Auto) [place] % (Auto) Eos % (Auto) Baso % (Auto) Neut # (Auto) Lymph # (Auto) [place] # (Auto) Eos # (Auto) Baso # (Auto) PT 23.3 H INR 2.0 H APTT Sodium Potassium Chloride Carbon Dioxide BUN Creatinine Estimated GFR BUN/Creatinine Ratio Glucose Calcium Magnesium 1.3 L Total Bilirubin AST ALT Alkaline Phosphatase Total Protein Albumin Globulin Albumin/Globulin Ratio Lipase COVID-19 PCR Negative 07/12/20 07/12/20 07/12/20 04:51 04:51 04:51 WBC 15.1 H RBC 4.90 Hgb 16.2 Hct 45.3 MCV 92.3 MCH 33.1 MCHC 35.8 RDW 13.4 Plt Count 189 Neut % (Auto) 81.5 H Lymph % (Auto) 10.6 L [place] % (Auto) 6.9 Eos % (Auto) 0.7 L Baso % (Auto) 0.3 Neut # (Auto) 96701 H Lymph # (Auto) 1600 [place] # (Auto) 1000 H Eos # (Auto) 100 Baso # (Auto) 0 PT INR APTT 35 Sodium 137 Potassium 3.6 Chloride 93 L Carbon Dioxide 38 H BUN 32 H Creatinine 1.23 Estimated GFR 58.0 L BUN/Creatinine Ratio 26.0 H Glucose 135 H Calcium 8.9 Magnesium 2.3 Total Bilirubin 2.9 H AST 23 ALT 25 Alkaline Phosphatase 85 Total Protein 7.4 Albumin 4.0 Globulin 3.4 Albumin/Globulin Ratio 1.2 Lipase COVID-19 PCR Assessment & Plan Assessment & Plan narrative: Patient with atrial fibrillation hypertension. His medications have continued. His pulse seems to be controlled at this time. His symptoms from his appendicitis and his exam related to that have improved. He still allow ever looks distended somewhat and has had vomiting. I am awaiting x-rays ordered for last night. I have discussed this patient with my partner Dr. Vega who will be caring for him today.
[2020-07-12] MEDS: METOPROLOL IR 50 MG TABLET PO ×2 (10:26→21:09)
--- NOTE | 2020-07-12 10:57 | DI.RAD.S_ITS ---
PROCEDURE: XR CHEST 1V INDICATIONS: ng tube placement TECHNIQUE: One view of the chest was acquired. COMPARISON: [facility], CR, XR CHEST 2V, 08/10/2019, 10:24. [facility], CR, XR CHEST 2V, 01/15/2019, 12:31. FINDINGS: Surgical changes and devices: Esophagogastric tube has been placed with the side port at the GE junction and the tip within the gastric cardia. Small bowel dilatation pattern persists.. Lungs and pleura: Lungs are clear. No pleural effusions or pneumothorax. Mediastinum: Mediastinal contours appear normal. Heart size is normal. Bones and chest wall: No suspicious bony lesions. Overlying soft tissues appear unremarkable. IMPRESSION: Recommended van sing the esophagogastric tube approximately 10 cm to advance the side port into the gastric cardia. Dictated by: Kelvin Waters M.D. on 07/12/2020 at 11:16 Approved by: Kelvin Waters M.D. on 07/12/2020 at 11:18
--- NOTE | 2020-07-12 11:50 | PC.NURSE ---
Addendum entered by Maura Osorio R.N. 07/12/20 14:51: First unit of ffp infused. Patient has one left. Will hang his antibiotic in between. Resting comfortably. NG tube has put out about 400cc of green bile. Original Note: NG tube placed down patients l.nare s any difficulty, initially he had out 250cc of green bile. Patient had an xray to confirm placement and although it was in the stomach, they recommended advancing it 5-10cm. This has been done and tube is putting out good amounts of green bile. Set to suction at 100mm. Patient tolerated procedure well. His abdomen is soft but distended. BT are hypoactive to l.lower quadrant and hypoactive to r.lower quadrant. He is in good spirits and deciding if he wants to have an exp lap with appendectomy. Surgery is scheduled for 5. Patient will also be getting some FFP as well soon. is at bedside.
[2020-07-12] MEDS: LIDOCAINE JELLY 2% 5 ML 1 APPLIC TOP (13:49)
--- NOTE | 2020-07-12 14:45 | PM.EVENT ---
Event Note Date Patient Seen: 07/12/20 Time Patient Seen: 14:45 Event Note: I went to see the patient and discuss with him plan of care and possible surgery. He has an NG tube in which is actively sumping with about 500 of bilious output. His abdomen is moderately distended, but nontender. No RLQ TTP. He reports his RLQ pain is much better. He is currently non-tender and his supraumbilical hernia is reduced and his epigastric hernia is soft, non tender, and easily reducible on exam. He reports he is actively passing flatus today. He is about to start getting FFP. We had a long discussion about the risks and benefits of going ahead with surgery versus deferring surgery. I do not see the emergency to go ahead with surgery right this moment. He seems to be improving in terms of the appendicitis, which we are treating with antibiotics. He seems to be improving in terms of the incarcerated hernia and obstructive symptoms. He would very much like not to have emergency surgery. He is aware that if we do operate on the some urgently, it will not be a definitive repair, he will have her high risk of hernia recurrence, as we will not be able to use mesh in the setting of acute appendicitis. His preference is to be treated for the appendicitis, decompress the obstruction, and be very vigilant to keep his hernia reduced until he can have it repaired definitively with mesh in the future. Have discussed the fact that this may not work out. If we cannot get him unobstructed, without going in the operating room to do so, we will fix the hernia primarily without mesh, and likely recommend going ahead to take out the appendix at the same time. I feel that the patient understands the risks and benefits of this situation. In addition to what was discussed above, it has been about 3 days since he has had any significant p.o. intake. He does have atrial fibrillation we are reversing his INR. We have discussed that there is a small risk of clot formation and stroke or VTE which could result from clot formation. We have discussed that if he gets today 7 without taking adequate p.o., we will place a PICC line and put him on TPN. We will go ahead and keep him NPO, keep the NG tube sumping, give him the FFP, recheck his INR in other labs tomorrow morning. We will have him ambulating today once the FFP is done. If things seem to be improving we will go ahead with a small-bowel follow-through tomorrow to ensure that his bowel function is appropriate, and move on from there with potentially removing the NG tube. If he fails to progress, we will plan on going to the operating room.
--- NOTE | 2020-07-12 16:19 | CM.IDA ---
Initial DCP Assessment Note Patient is a 70 yo male, resident of [facility]. Patient admitted w/ SBO, appendicitis, hernia being followed closely by the surgical team PCP: Macho Dorantes Payer: JON/Felicia Reviewed chart, then met w/patient and supportive spouse Renita at bedside. Introduced role. Patient has NG tube to suction. TAVARES Lorenzo has explained to this SALES CONTRACTOR that surgical team attempting to calm patient's appendicitis w/ IV abx and relieve SBO w/ NG suction before attempting surgical intervention. Thorough notes on chart from Dr Vu and Dr Vega re: conversations w/patient about risk vs benefits of POC. Patient appears tired this afternoon but remains in good spirits. Little too early to discuss DCP or DC needs but patient intends to return home when able w/supportive spouse, appreciative for the visit today. SALES CONTRACTOR contact information left on white board for patient and family to use in case DC needs or questions arise before another visit. Will follow closely. JORGE Vogt
[2020-07-12] MEDS: LACTATED RINGERS 1,000 ML 125 ML IV (21:07)
[2020-07-12] MEDS: ATORVASTATIN 20 MG TABLET PO (21:08)
[2020-07-12 22:32] LABS: INR 1.6 (0.9-1.3); Prothrombin Time 18.4 SECONDS (10.1-12.7)
[2020-07-13] VITALS (13 sets, daily range): BP systolic 103–146; BP diastolic 58–95; PULSE 93–113; RESP 16–20; TEMP 36.2–36.6; O2SAT 91–97
[2020-07-13] MEDS: ACETAMINOPHEN 325 MG TABLET 650 MG PO ×4 (00:20→18:28)
[2020-07-13] MEDS: LEVOTHYROXINE 112 MCG TABLET PO (05:02)
[2020-07-13] MEDS: LACTATED RINGERS 1,000 ML 125 ML IV ×3 (05:03→21:52)
[2020-07-13 05:26] LABS: Add Manual Diff / Slide Review NO; Basophils Absolute Auto 0 /uL (0-100); Basophils Percent Auto 0.5 % (0-2); Eosinophils Absolute Auto 400 /uL (0-450); Eosinophils Percent Auto 5.1 % (2-4); Hematocrit 41.9 % (41-53); Hemoglobin 14.7 g/dL (13.5-17.5); Lymphocytes Absolute Auto 1800 /uL (1100-4500); Lymphocytes Percent Auto 21.9 % (25-40); Mean Corpuscular HGB Conc 35.1 % (30-36); Mean Corpuscular Hemoglobin 32.7 PG (26-34); Mean Corpuscular Volume 93.2 fL (80-100); Monocytes Absolute Auto 1200 /uL (0-900); Monocytes Percent Auto 14.9 % (3-14); Neutrophils Absolute Auto 4600 /uL (1500-7000); Neutrophils Percent Auto 57.6 % (50-75); Platelet Count 197 X10^3/uL (150-400); Red Blood Cell Count 4.49 X10^6/uL (4.5-5.9); Red Cell Distribution Width 13.3 % (11.6-14.8)
[2020-07-13 05:28] LABS: INR 1.4 (0.9-1.3); Prothrombin Time 16.7 SECONDS (10.1-12.7)
[2020-07-13] MEDS: PIPERACILLIN-TAZO 3.375 GM/50 ML FROZ.PIGGY IV ×3 (05:44→21:52)
[2020-07-13 05:49] LABS: BUN Creatinine Ratio 24.8 (6-22); Blood Urea Nitrogen 29 mg/dL (9-20); Calcium 8.6 mg/dL (8.4-10.2); Chloride 96 mmol/L (98-107); Estimated Glomerular Filt Rate > 60.0 mL/min (>60); Glucose 110 mg/dL (80-110); HEMOLYSIS < 15 (0-50); Magnesium 2.2 mg/dL (1.6-2.3); Phosphorous 2.3 mg/dL (2.3-3.7); Potassium 3.5 mmol/L (3.4-5.1); Sodium 140 mmol/L (137-145)
[2020-07-13 05:55] LABS: Procalcitonin 0.47 ng/mL (<0.5)
[2020-07-13 05:56] LABS: Carbon Dioxide 37 mmol/L (22-32)
--- NOTE | 2020-07-13 06:20 | PC.NURSE ---
Addendum entered by Analilia Gaspar R.N. 07/13/20 06:56: Patient passing gas, bowel sounds active, no BM. Addendum entered by Analilia Gaspar R.N. 07/13/20 06:23: A fib, with rate in low 100's. With exertion, patient's heart rate up to 120-130's but non sustained. Patient on 2L NC and NG tube in place. 300 mL of dark green drainage from NG. Patient withdrawn and hesitant when this RN asked about his thoughts on condition and conservative measures. Patient currently resting in bed, no distress noted. Potassium currently infusing along with IVF. Original Note: car shifter note: Patient slept well throughout the shift. Patient void x1, 300 mL. Patient in afib
[2020-07-13] MEDS: POTASSIUM CHLORIDE 40 MEQ in SODIUM CHLORIDE 0.9% 500 ML 130 ML IV (06:34)
--- NOTE | 2020-07-13 07:09 | DI.RAD.S_ITS ---
PROCEDURE: FL SMALL BOWEL FOLLOW THROUGH INDICATIONS: SBO, equivocal return of bowel function COMPARISON: [facility], CT, CT ABDOMEN PELVIS W CON, 07/11/2020, 19:32. [facility], CR, XR ACUTE ABDOMEN SERIES, 07/12/2020, 8:55. FINDINGS: KUB: Preprocedural quick technician film demonstrates persistent mild gas distention of multiple small bowel loops. There also scattered air-fluid levels. A nasogastric tube is demonstrated extending to the stomach. No suspicious abdominal calcifications. No suspicious bony abnormalities. Small bowel: Contrast was administered through the nasogastric tube into the stomach. There is distention of small-bowel loops proximally. Distal small bowel loops and colon are nondistended. There is subsequent opacification of the rectosigmoid colon. IMPRESSION: 1. Distention of proximal small bowel loops with nondistention of the distal small bowel and colon. The findings are compatible with a partial small bowel obstruction. Dictated by: Reji Lees M.D. on 07/13/2020 at 16:18 Approved by: Reji Lees M.D. on 07/13/2020 at 16:22
--- NOTE | 2020-07-13 07:10 | P.PN_ITS ---
Subjective Subjective Date Patient Seen: 07/13/20 Time Patient Seen: 07:10 Interval history: No acute events overnight. The patient denies pain. He is passing gas. Exam Vital Signs (past 8 hours): - 07/13/20 00:00 07/13/20 03:08 07/13/20 05:00 Temperature 97.8 F 97.6 F Pulse Rate 104 H 113 H Respiratory Rate 18 20 Blood Pressure 146/87 H 129/79 Pulse Oximetry 95 94 94 Oxygen Delivery Method Nasal Cannula Oxygen Flow Rate 2 Narrative Exam Narrative: GENERAL: Alert, comfortable. Appears stated age. Answers questions promptly and appropriately. Vital signs noted. HENT: Normocephalic, atraumatic. Hearing intact. NG tube in place and sumping EYES: Conjunctiva pink, sclera white, no periorbital swelling. CARDIOVASCULAR: Regular rate. No pedal edema. RESPIRATORY: Non-tachypneic, breathing comfortably on room air. GASTROINTESTINAL: Abdomen soft and non-distended, nontender. Midline hernia spots are currently nontender and the supraumbilical hernia is completely reduced. GENITALURINARY: No flank tenderness. MUSCULOSKELETAL: Equal tone and mass bilaterally. SKIN: Warm, dry, soft, appropriate color for ethnicity. No other lesions, rashes, or wounds. NEURO: Alert and Oriented X 3. No gross sensory deficits, or cognitive issues. PSYCH: Appropriate affect and mood. Objective Labs Result Diagrams: 07/13/20 04:45 07/13/20 04:45 Labs: Laboratory Results - last 24 hr 07/12/20 07/12/20 07/13/20 11:25 22:10 04:45 WBC RBC Hgb Hct MCV MCH MCHC RDW Plt Count Neut % (Auto) Lymph % (Auto) [place] % (Auto) Eos % (Auto) Baso % (Auto) Neut # (Auto) Lymph # (Auto) [place] # (Auto) Eos # (Auto) Baso # (Auto) PT 18.4 H INR 1.6 H Sodium Potassium Chloride Carbon Dioxide BUN Creatinine Estimated GFR BUN/Creatinine Ratio Glucose Calcium Phosphorus Magnesium Procalcitonin 0.47 Blood Type AB Negative 07/13/20 07/13/20 07/13/20 04:45 04:45 04:45 WBC 8.0 RBC 4.49 L Hgb 14.7 Hct 41.9 MCV 93.2 MCH 32.7 MCHC 35.1 RDW 13.3 Plt Count 197 Neut % (Auto) 57.6 D Lymph % (Auto) 21.9 L [place] % (Auto) 14.9 H Eos % (Auto) 5.1 H Baso % (Auto) 0.5 Neut # (Auto) 4600 Lymph # (Auto) 1800 [place] # (Auto) 1200 H Eos # (Auto) 400 Baso # (Auto) 0 PT 16.7 H INR 1.4 H Sodium 140 Potassium 3.5 Chloride 96 L Carbon Dioxide 37 H BUN 29 H Creatinine 1.17 Estimated GFR > 60.0 BUN/Creatinine Ratio 24.8 H Glucose 110 Calcium 8.6 Phosphorus 2.3 Magnesium 2.2 Procalcitonin Blood Type Assessment & Plan Assessment and plan (1) Chronic anticoagulation: Problem details: INR is 1.4 after reversal with FFP and vitamin K. We reversed this in case he does need an urgent operation. Status: Acute (2) Hypothyroidism: Problem details: Will continue his levothyroxine to treat his hypothyroidism. Status: Acute (3) Incisional hernia with bowel obstruction: Problem details: Patient has multiple incisional hernias of his ventral wall. The hernias are currently nontender and appeared to be nonobstructing given that he is passing gas. We will do a small-bowel follow-through today, and remove the NG tube as appropriate. I have explained to him that if he remains obstructed, or these hernias cannot be temporized for surgery at a later date, we will need to go ahead and emergently operate. This would not be optimal given that we cannot put a mesh in the setting of acute appendicitis, and his hernia will have a high chance of recurrence. He would like to avoid operation on this admission, which I think that we likely can. We will see with a small-bowel follow-through shows today and go from there. Status: Acute (4) Obesity determined by physical examination: Problem details: Will talk to him about weight loss. His BMI is 32. Status: Acute (5) Hypertension: Problem details: Patient will be continued on blood pressure medicine. Status: Acute (6) Atrial fibrillation: Problem details: Has been tachy to the 1 teens at times, still on his baseline metoprolol and as needed IV metoprolol. Hospitalist is following. Status: Acute (7) Acute appendicitis: Problem details: Right lower quadrant tenderness has resolved. White count and left shift have resolved. Procalcitonin is 0.47. He has been on Zosyn for 3 days. Once he is able to take p.o. he can be switched to p.o. antibiotic. Qualifiers: Acute appendicitis type: unspecified acute appendicitis type Qualified Code(s): K35.80 - Unspecified acute appendicitis Status: Acute Assessment & Plan narrative: This is a 70-year-old man who is on hospital day 3 admitted for acute appendicitis an obstructing ventral hernias. He is currently not having any pain, his white count has resolved, and his hernias appear reduced. He still has an NG tube in, and is still on IV Zosyn. We have reversed his INR in case he does need to go to the operating room emergently. Plan: Small-bowel follow-through today Continue to hold anticoagulation for now Will start DVT prophylaxis Continue Zosyn for now If small-bowel follow-through is normal, we will remove the NG tube and start him on clears COVID-19 COVID-19 status: Negative Result date/Date tested (Pos, Neg/Pending): 07/11/20 Time Spent With Patient Time with patient: 15-24 minutes Quality VTE Deep Vein Thrombosis/Pulmonary Embolism Present on Admission: No
--- NOTE | 2020-07-13 08:24 | CM.DPC ---
DCP Cont: Per Surgeon, pt to have Small Bowel Follow through today and if pt remains obstructed then possible need for surgical intervention for obstruction and hernias. Attempting conservative treatment and SBFT first in attempt to avoid surgery if possible. Pt still with NG tube and IV-Abx. Plan: SW to follow closely after SBFT to determine POC and d/c needs pending possible surgical intervention. JORGE Fortune
[2020-07-13] MEDS: hydroCHLOROthiazide 25 MG TABLET PO (08:40)
[2020-07-13] MEDS: AMLODIPINE 5 MG TABLET 10 MG PO (08:40)
[2020-07-13] MEDS: lisinopriL 20 MG TABLET 40 MG PO (08:40)
[2020-07-13] MEDS: METOPROLOL IR 50 MG TABLET PO ×2 (08:40→21:04)
[2020-07-13] MEDS: GABAPENTIN 300 MG CAPSULE PO ×2 (08:40→21:04)
--- NOTE | 2020-07-13 13:33 | P.PN_ITS ---
Subjective Subjective Date Patient Seen: 07/13/20 Interval history: Patient admitted for a SBO and appendicitis. He has atrial fibrillation and is on coumadin for anticoagulation. He currently has a NGT in place. He reports continued abdominal distention, but no shortness of brath or chest pain Exam Vital Signs (past 8 hours): - 07/13/20 08:00 07/13/20 09:40 07/13/20 09:49 Temperature 97.5 F L Pulse Rate 100 H Respiratory Rate 16 Blood Pressure 103/58 L Pulse Oximetry 94 96 94 07/13/20 12:19 Temperature Pulse Rate Respiratory Rate Blood Pressure Pulse Oximetry 95 Oxygen Delivery Method Room Air Oxygen Flow Rate 0 Narrative Exam Narrative: Lungs: Decreased breath sounds CV: irregularly irregular nl Sl S2 Abd; distended, soft/ non tender/ no rebound tenderness no board like rigidity Ext: no edema Objective Labs Result Diagrams: 07/13/20 04:45 07/13/20 04:45 Labs: Laboratory Results - last 24 hr 07/12/20 07/12/20 07/13/20 11:25 22:10 04:45 WBC RBC Hgb Hct MCV MCH MCHC RDW Plt Count Neut % (Auto) Lymph % (Auto) [place] % (Auto) Eos % (Auto) Baso % (Auto) Neut # (Auto) Lymph # (Auto) [place] # (Auto) Eos # (Auto) Baso # (Auto) PT 18.4 H INR 1.6 H Sodium Potassium Chloride Carbon Dioxide BUN Creatinine Estimated GFR BUN/Creatinine Ratio Glucose Calcium Phosphorus Magnesium Procalcitonin 0.47 Blood Type AB Negative 07/13/20 07/13/20 07/13/20 04:45 04:45 04:45 WBC 8.0 RBC 4.49 L Hgb 14.7 Hct 41.9 MCV 93.2 MCH 32.7 MCHC 35.1 RDW 13.3 Plt Count 197 Neut % (Auto) 57.6 D Lymph % (Auto) 21.9 L [place] % (Auto) 14.9 H Eos % (Auto) 5.1 H Baso % (Auto) 0.5 Neut # (Auto) 4600 Lymph # (Auto) 1800 [place] # (Auto) 1200 H Eos # (Auto) 400 Baso # (Auto) 0 PT 16.7 H INR 1.4 H Sodium 140 Potassium 3.5 Chloride 96 L Carbon Dioxide 37 H BUN 29 H Creatinine 1.17 Estimated GFR > 60.0 BUN/Creatinine Ratio 24.8 H Glucose 110 Calcium 8.6 Phosphorus 2.3 Magnesium 2.2 Procalcitonin Blood Type Assessment & Plan Assessment & Plan narrative: Assessment & Plan narrative: This is a 70-year-old male patient who presents to the ER with 2 days of generalized abdominal pain localizing to the right lower quadrant. 1. Acute abdominal pain, present on admission, active -patient is found to have early appendicitis on CT scan as well as small-bowel obstruction secondary to bowel containing umbilical hernia. -surgical management per the primary team. -patient receiving Zosyn 3.375 g IV every 8 hours. -patient is NPO except for medications - UGI SBFT ordered, results will determine whether NGT can be removed or not--management per surgery 2. Chronic Atrial fibrillation, present on admission, stable -patient is placed on telemetry for cardiac monitoring with heart rate variable from 80s to 110s. The patient denies complaints of chest pain or shortness of breath and is unaware of his cardiac irregularity. -last echocardiogram was completed on 07/12/2019 or with findings of ejection fraction of 60-65% with normal LV size and function, normal RV size and function mild tricuspid regurgitation with estimated right systolic pressure of 32 and right atrial pressure of 8. -patient is hypokalemic with a potassium of 3.3 which is repleted with 40 mEq of KCl cautiously in the setting of elevated creatinine of 1.62. Will obtain a magnesium level. -patient is NPO except for medication continue home regimen of metoprolol tartr ate 50 mg twice daily. Ordered metoprolol tartrate 5 mg IV as needed for sustained heart rate greater than 120. -Continue IV betablocker 3. Long-term anticoagulation on warfarin, chronic, stable. -therapeutic INR at 2.0 on admission labs. -patient's warfarin is being held for possible surgery, patient received vitamin K 10 units subcu - resume coumading when taking po 4. Hypertension, chronic, stable -patient's blood pressure is adequately controlled blood pressure 130s over 160s. -the patient is NPO except for medication, continue patient's home regimen of amlodipine 10 mg daily, lisinopril 40 mg daily and metoprolol tartrate 50 mg twice daily. 5. Asthma, chronic, stable -no complaints of shortness of breath cough, no wheezing evident on exam. -continue Advair Diskus twice daily 6. Hypothyroidism, chronic, stable. -patient had thyroid labs on 07/08/2020 finding TSH 9.4 and a free T4 of 1.06. -continue patient's home regimen of levothyroxine 112 mcg daily. 7. Hyperlipidemia, chronic, stable. -continue home regimen of atorvastatin 20 mg daily. will continue to monitor and adjust medications pending his ability to take po. Quality VTE Deep Vein Thrombosis/Pulmonary Embolism Present on Admission: No
[2020-07-13] MEDS: ENOXAPARIN 40 MG/0.4 ML SYRINGE SUBCUT (13:40)
--- NOTE | 2020-07-13 18:05 | PC.NURSE ---
Pt had 200cc bile fluid out. NG tube removed, pt tolerated well.
[2020-07-13] MEDS: ATORVASTATIN 20 MG TABLET PO (21:04)
[2020-07-14] VITALS (11 sets, daily range): BP systolic 102–150; BP diastolic 66–87; PULSE 86–106; RESP 15–19; TEMP 36.1–36.8; O2SAT 92–97
[2020-07-14] MEDS: ACETAMINOPHEN 325 MG TABLET 650 MG PO ×3 (04:33→17:52)
[2020-07-14 05:27] LABS: Add Manual Diff / Slide Review NO; Basophils Absolute Auto 100 /uL (0-100); Basophils Percent Auto 0.8 % (0-2); Eosinophils Absolute Auto 400 /uL (0-450); Eosinophils Percent Auto 4.3 % (2-4); Hematocrit 41.3 % (41-53); Hemoglobin 14.3 g/dL (13.5-17.5); Lymphocytes Absolute Auto 2000 /uL (1100-4500); Lymphocytes Percent Auto 19.8 % (25-40); Mean Corpuscular HGB Conc 34.7 % (30-36); Mean Corpuscular Hemoglobin 32.7 PG (26-34); Mean Corpuscular Volume 94.3 fL (80-100); Monocytes Absolute Auto 1200 /uL (0-900); Monocytes Percent Auto 11.2 % (3-14); Neutrophils Absolute Auto 6600 /uL (1500-7000); Neutrophils Percent Auto 63.9 % (50-75); Platelet Count 206 X10^3/uL (150-400); Red Blood Cell Count 4.38 X10^6/uL (4.5-5.9); Red Cell Distribution Width 13.3 % (11.6-14.8); White Blood Cell Count 10.3 X10^3/uL (4.5-11.0)
[2020-07-14 05:41] LABS: BUN Creatinine Ratio 22.5 (6-22); Blood Urea Nitrogen 20 mg/dL (9-20); Calcium 8.9 mg/dL (8.4-10.2); Chloride 101 mmol/L (98-107); Estimated Glomerular Filt Rate > 60.0 mL/min (>60); Glucose 97 mg/dL (80-110); HEMOLYSIS < 15 (0-50); Magnesium 1.9 mg/dL (1.6-2.3); Potassium 3.5 mmol/L (3.4-5.1); Sodium 144 mmol/L (137-145)
[2020-07-14] MEDS: LEVOTHYROXINE 112 MCG TABLET PO (06:05)
[2020-07-14] MEDS: PIPERACILLIN-TAZO 3.375 GM/50 ML FROZ.PIGGY IV ×3 (06:05→22:52)
[2020-07-14 06:10] LABS: Carbon Dioxide 37 mmol/L (22-32)
[2020-07-14] MEDS: LACTATED RINGERS 1,000 ML 125 ML IV (06:58)
--- NOTE | 2020-07-14 07:01 | PC.NURSE ---
Room air saturation 94%. Oxygen 2 liters discontinued, will report to day RN.
[2020-07-14] MEDS: GABAPENTIN 300 MG CAPSULE PO ×2 (09:31→20:13)
[2020-07-14] MEDS: hydroCHLOROthiazide 25 MG TABLET PO (09:31)
[2020-07-14] MEDS: lisinopriL 20 MG TABLET 40 MG PO (09:31)
[2020-07-14] MEDS: POTASSIUM PHOSPHATE 15 MMOL in DEXTROSE 5% IN WATER 250 ML 63.75 ML IV (09:32)
[2020-07-14] MEDS: ENOXAPARIN 40 MG/0.4 ML SYRINGE SUBCUT (09:32)
[2020-07-14] MEDS: METOPROLOL IR 50 MG TABLET PO ×2 (09:32→20:13)
[2020-07-14] MEDS: AMLODIPINE 5 MG TABLET 10 MG PO (09:32)
[2020-07-14] MEDS: METOPROLOL TARTRATE 5 MG/5 ML INJ IV (10:32)
--- NOTE | 2020-07-14 10:39 | P.PN_ITS ---
Subjective Subjective Date Patient Seen: 07/14/20 Interval history: NG tube removed. Patient's heart rate improved. He did developed rapid atrial fibrillation and required IV metoprolol. He is switch back to his usual oral metoprolol at home. His diet was advanced. He had minimal intake for breakfast and lunch. However it is anticipated that the patient will be discharged home within the next 1-2 days. Exam Vital Signs (past 8 hours): - 07/14/20 04:30 07/14/20 08:21 07/14/20 10:32 Temperature 97.0 F L 98.2 F Pulse Rate 93 H 86 99 H Respiratory Rate 16 18 15 Blood Pressure 150/87 H 133/80 Pulse Oximetry 97 96 93 Oxygen Delivery Method Room Air Oxygen Flow Rate 0 Narrative Exam Narrative: Pleasant gentleman in no obvious distress Lungs: Clear to auscultation Cardiac exam: Irregularly irregular, normal S1-S2 Abdomen: Soft and nontender Extremity: No edema Objective Labs Result Diagrams: 07/14/20 04:55 07/14/20 04:55 Labs: Laboratory Results - last 24 hr 07/14/20 07/14/20 04:55 04:55 WBC 10.3 RBC 4.38 L Hgb 14.3 Hct 41.3 MCV 94.3 MCH 32.7 MCHC 34.7 RDW 13.3 Plt Count 206 Neut % (Auto) 63.9 Lymph % (Auto) 19.8 L [place] % (Auto) 11.2 Eos % (Auto) 4.3 H Baso % (Auto) 0.8 Neut # (Auto) 6600 Lymph # (Auto) 2000 [place] # (Auto) 1200 H Eos # (Auto) 400 Baso # (Auto) 100 Sodium 144 Potassium 3.5 Chloride 101 Carbon Dioxide 37 H BUN 20 Creatinine 0.89 Estimated GFR > 60.0 BUN/Creatinine Ratio 22.5 H Glucose 97 Calcium 8.9 Phosphorus 2.0 L Magnesium 1.9 Assessment & Plan Assessment & Plan narrative: 1. Atrial fibrillation -continue metoprolol at 50 b.i.d. -patient heart rate Welk -will sign off, consult for further issues 2. Hypertension Continue lisinopril 3. Hypothyroid -continue L-thyroxine Quality VTE Deep Vein Thrombosis/Pulmonary Embolism Present on Admission: No
--- NOTE | 2020-07-14 10:40 | P.DS_ITS ---
History of Present Illness History of Present Illness Date Patient Seen: 07/14/20 Time Patient Seen: 10:40 Date of Onset of Symptoms: 07/10/20 Chief complaint: fever, vomiting Narrative: The patient is a gentleman with about a 40 hour history of diffuse mid abdominal pain and right lower quadrant pain. He has had the mid abdominal pain before unusually he does weights at out but the right lower quadrant pain is new and has lasted longer than the usual episodes he has of the diffuse abdominal pain. He vomited twice today no blood. He has passed no blood per rectum. His last colonoscopy was about 8 years ago. His mother had colon cancer. His believes he may have had a polyp removed in the distant past. He has had an open cholecystectomy in the distant past through a midline incision. He says that sometimes he has to massage his abdomen to push in bulges that occur in his mid abdomen. Discharge Providers Provider Date of admission: 07/11/20 21:45 Discharge Date: 07/15/20 Primary care physician: Macho Dorantes MD Consults: 07/11/20 22:29 Consult to Discharge Planning Routine Comment: Consult to Internal Medicine Routine Comment: Consulting Provider: Sarath Warren Reason for consultation: htn, afib management while hospitalized. Has provider been notified: Yes Consult to Respiratory Therapy Evaluate & Treat Comment: History of asthma Physician Instructions: Evaluate and treat Discharge provider: Shelly Vega MD Summary Hospital Course Discharge Diagnosis: Acute appendicitis, bowel obstruction, incarcerated ventral hernia Hospital Course: The patient was admitted for non surgical management of his SBO and appendicitis. He was on Coumadin with elevated INR. His INR was reversed, and he was treated with antibiotics for his appendicitis. He had an NGT placed to decompress his bowel. His WBC, left shift, and procalcitonin normalized, and he had a successful SBFT and subsequent removal of the NGT. His diet was advanced and he was discharged home with strict return precautions. Status at Discharge Cognitive/behavioral status at discharge: at baseline, oriented Functional status at discharge: independent ambulation Overall status at discharge: patient is progressing back to baseline Time Spent with Patient Time spent: Greater than 30 minutes Exam Vital Signs (past 8 hours): - 07/14/20 04:30 07/14/20 08:21 07/14/20 10:32 Temperature 97.0 F L 98.2 F Pulse Rate 93 H 86 99 H Respiratory Rate 16 18 15 Blood Pressure 150/87 H 133/80 Pulse Oximetry 97 96 93 Oxygen Delivery Method Room Air Oxygen Flow Rate 0 Narrative Exam Narrative: GENERAL: Alert, comfortable. Appears stated age. Answers questions promptly and appropriately. Vital signs noted. HENT: Normocephalic, atraumatic. Hearing intact. EYES: Conjunctiva pink, sclera white, no periorbital swelling. CARDIOVASCULAR: Regular rate. No pedal edema. RESPIRATORY: Non-tachypneic, breathing comfortably on room air. GASTROINTESTINAL: Abdomen soft and non-distended, nontender. Midline hernia spots are currently nontender and the supraumbilical hernia is completely reduced. The epigastric hernia is nontender and partially reduced. Improved from prior but not resolved as it has not been surgically repaired GENITALURINARY: No flank tenderness. MUSCULOSKELETAL: Equal tone and mass bilaterally. SKIN: Warm, dry, soft, appropriate color for ethnicity. No other lesions, rashes, or wounds. NEURO: Alert and Oriented X 3. No gross sensory deficits, or cognitive issues. PSYCH: Appropriate affect and mood. Objective Imaging Abdominal x-ray: My impression: Evidence of resolution of obstruction. Small bowel loops remain dilated. Contrast goes through to the colon. Radiologist's impression: [address] [address] XRay Report Signed Patient: Brian Nino JMR#: [id number] : 9Acct:[id number] Age/Sex: 70 / MDate of Service: 07/13/20 Loc: CJ252-3 Accession Number: [id number] Procedure: FL small bowel follow through Ordering Provider: Shelly Vega MD PROCEDURE: FL SMALL BOWEL FOLLOW THROUGH INDICATIONS: SBO, equivocal return of bowel function COMPARISON: [facility], CT, CT ABDOMEN PELVIS W CON, 07/11/2020, 19:32. [facility], CR, XR ACUTE ABDOMEN SERIES, 07/12/2020, 8:55. FINDINGS: KUB: Preprocedural licensing worker film demonstrates persistent mild gas distention of mu ltiple small bowel loops. There also scattered air-fluid levels. A nasogastric tube is demonstrated extending to the stomach. No suspicious abdominal calcifications. No suspicious bony abnormalities. Small bowel: Contrast was administered through the nasogastric tube into the stomach. There is distention of small-bowel loops proximally. Distal small bowel loops and colon are nondistended. There is subsequent opacification of the rectosigmoid colon. IMPRESSION: 1. Distention of proximal small bowel loops with nondistention of the distal small bowel and colon. The findings are compatible with a partial small bowel obstruction. Dictated by: Reji Lees M.D. on 07/13/2020 at 16:18 Approved by: Reji Lees M.D. on 07/13/2020 at 16:22 Labs Result Diagrams: 07/14/20 04:55 07/15/20 04:35 Labs: Laboratory Results - last 24 hr 07/14/20 07/14/20 04:55 04:55 WBC 10.3 RBC 4.38 L Hgb 14.3 Hct 41.3 MCV 94.3 MCH 32.7 MCHC 34.7 RDW 13.3 Plt Count 206 Neut % (Auto) 63.9 Lymph % (Auto) 19.8 L [place] % (Auto) 11.2 Eos % (Auto) 4.3 H Baso % (Auto) 0.8 Neut # (Auto) 6600 Lymph # (Auto) 2000 [place] # (Auto) 1200 H Eos # (Auto) 400 Baso # (Auto) 100 Sodium 144 Potassium 3.5 Chloride 101 Carbon Dioxide 37 H BUN 20 Creatinine 0.89 Estimated GFR > 60.0 BUN/Creatinine Ratio 22.5 H Glucose 97 Calcium 8.9 Phosphorus 2.0 L Magnesium 1.9 Discharge Assessment & Plan Assessment and Plan Assessment: Improvement of SBO and acute appendicitis. Pt has been given strict instructions and return precautions. He would like to go home and continue to recover there. I think this is reasonable, but not without risk of needing to return, as I have outlined. Plan of Treatment: Slowly advance diet Antibiotic PO at home No lifting or straining Bowel regimen as needed to prevent constipation Follow up with me later this week Discharge Plan Discharge Plan Patient Disposition: Home Provider Discharge Comment: IMPORTANT. PLEASE READ: Your hospital stay: You have had non surgical management of acute appendicitis and small bowel obstruction associated with multiple ventral hernias. Your parameters of infection have improved on IV antibiotics, and are now normal. Your signs and symptoms of bowel obstruction have improved. Home care: The appendicitis and the bowel obstruction are still resolving, and may worsen at home, in which case you will need to return to the hospital. Symptoms such as fevers, nausea/vomiting, bulging of hernia sites, irreducible bulging of hernia sites, worsening right lower abdomen pain or midline hernia pain, not passing gas or stool. Management at home will consist of avoiding all straining of the abdominal wall, wearing abdominal binder as tolerated, keeping hernia sites reduced, preventing constipation, and taking the antibiotic for your appendicitis. Take the antibiotic as directed. It may cause loose stool. Take a probiotic which may be purchased over the counter in the pharmacy (Culturelle or Lactobacillus are good options) to help prevent that. If you are constipated, please take an effective laxative such as Miralax three times daily until you have a bowel movement. Consider adding a fiber supplement such as Metamucil one to two times daily. Avoid straining on the toilet. If you can not have a bowel movement within 24 hours, please call the [facility] number and speak to the doctor contract technician. Please call make a follow up appointment to see me in the office on or Wednesday of this week. You may restart your Coumadin tomorrow. Return to your usual dose. Follow up as you normally would for your INR checks. Discharge orders & Medications Prescriptions: New amoxicillin-pot clavulanate [Augmentin] 875-125 mg tablet 1 tab PO Q12H Qty: 20 RF: 0 Continued atorvastatin 20 mg tablet 20 mg PO DAILY RF: 0 aspirin [Adult Aspirin Regimen] 81 mg tablet,delayed release (DR/EC) 81 mg PO DAILY RF: 0 amlodipine 10 mg tablet 10 mg PO DAILY RF: 0 warfarin 5 mg tablet 5 mg PO DAILY RF: 0 metoprolol tartrate 50 mg tablet 50 mg PO BID RF: 0 lisinopril 40 mg tablet 40 mg PO DAILY RF: 0 glucosamine HCl 1,500 mg tablet 1,500 mg PO DAILY RF: 0 levothyroxine 112 mcg capsule 112 mcg PO DAILY RF: 0 hydrochlorothiazide 25 mg Tablet 25 mg PO DAILY RF: 0 fluticasone propion-salmeterol [Advair Diskus] 100-50 mcg/dose Blister With Device 1 inh INHALATION BID RF: 0 potassium chloride 20 mEq Tablet Extended Release 20 meq PO BID RF: 0 Follow up/Referrals: Macho Dorantes MD [Primary Care Provider] - Weigle,Shelly, MD [Physician] - (Please call Wednesday to make an appointment to be seen or Wednesday. Please call this number if any urgent concerns arise. If you call after hours or on the weekend, you will reach the answering service. If that happens please choose the option to speak to the doctor contract technician. ) Diet/Activity/Treatments Diet: Diet as Tolerated Diet comment: Full liquid diet, advance to low residual as tolerated Activity: Avoid lifting/pushing/pulling over 10 lbs, avoid straining the abdominal muscles; avoid/prevent constipation; wear abdominal binder as tolerated; keep hernias reduced as much as possible Skin/Wound/Dressing Care Report to your healthcare provider any signs of infection, such as:: chills, fever, night sweats, increased pain, unusual drainage and unusual redness Visit Report/Discharge Packet Instructions: Low-Fiber/Low-Residue Diet, Abdominal Hernia Stand Alone Forms: Surgery Discharge Visit Report Forms: Patient Portal/API, Stroke Signs & Symptoms Discharge Data Primary Care Provider: Macho Dorantes Discharges patient from system. Discharge Date/Time: 07/15/20 12:45 Quality VTE Deep Vein Thrombosis/Pulmonary Embolism Present on Admission: No
--- NOTE | 2020-07-14 12:25 | CM.DPC ---
DCP Discharge Home Per Surgeon, pt tolerating liquids and discontinued NGT and will advance pt's diet today as SBFT did not show obstruction. If pt can tolerate advanced diet today he can d/c home with spouse later today with plan of close outpt follow up to repair his multiple hernias and appendix. SW met bedside with pt and spouse and MD during MDR and pt ambulating halls independently and confirms he is feeling well to d/c home today with close surgical follow up as outpt. Plan: SW to follow for plan of home later today with spouse assist if pt tolerates advanced diet. No SW needs at this time. JORGE Fortune
--- NOTE | 2020-07-14 14:09 | P.PN_ITS ---
Subjective Subjective Date Patient Seen: 07/14/20 Time Patient Seen: 14:13 Interval history: Pt had successful SBFT yesterday, and says he feels well over all. Denies abdominal pain, but still feels somewhat bloated. Exam Vital Signs (past 8 hours): - 07/14/20 08:21 07/14/20 10:32 Temperature 98.2 F Pulse Rate 86 99 H Respiratory Rate 18 15 Blood Pressure 133/80 Pulse Oximetry 96 93 Oxygen Delivery Method Room Air Oxygen Flow Rate 0 Narrative Exam Narrative: GENERAL: Alert, comfortable. Appears stated age. Answers questions promptly and appropriately. Vital signs noted. HENT: Normocephalic, atraumatic. Hearing intact. EYES: Conjunctiva pink, sclera white, no periorbital swelling. CARDIOVASCULAR: Regular rate. No pedal edema. RESPIRATORY: Non-tachypneic, breathing comfortably on room air. GASTROINTESTINAL: Abdomen soft and non-distended, nontender. Midline hernia spots are currently nontender and the supraumbilical hernia is completely reduced. The epigastric hernia is nontender and partially reduced. Improved from prior but not resolved as it has not been surgically repaired GENITALURINARY: No flank tenderness. MUSCULOSKELETAL: Equal tone and mass bilaterally. SKIN: Warm, dry, soft, appropriate color for ethnicity. No other lesions, rashes, or wounds. NEURO: Alert and Oriented X 3. No gross sensory deficits, or cognitive issues. PSYCH: Appropriate affect and mood. Objective Imaging Abdominal x-ray: My impression: Contrast through to colon Radiologist's impression: [address] [address] XRay Report Signed Patient: Brian Nino JMR#: [id number] : 9Acct:[id number] Age/Sex: 70 / MDate of Service: 07/13/20 Loc: DV483-9 Accession Number: [id number] Procedure: FL small bowel follow through Ordering Provider: Shelly Vega MD PROCEDURE: FL SMALL BOWEL FOLLOW THROUGH INDICATIONS: SBO, equivocal return of bowel function COMPARISON: [facility], CT, CT ABDOMEN PELVIS W CON, 07/11/2020, 19:32. [facility], CR, XR ACUTE ABDOMEN SERIES, 07/12/2020, 8:55. FINDINGS: KUB: Preprocedural plaster pattern caster film demonstrates persistent mild gas distention of multiple small bowel loops. There also scattered air-fluid levels. A nasogastric tube is demonstrated extending to the stomach. No suspicious abdominal calcifications. No suspicious bony abnormalities. Small bowel: Contrast was administered through the nasogastric tube into the stomach. There is distention of small-bowel loops proximally. Distal small bowel loops and colon are nondistended. There is subsequent opacification of the rectosigmoid colon. IMPRESSION: 1. Distention of proximal small bowel loops with nondistention of the distal small bowel and colon. The findings are compatible with a partial small bowel obstruction. Dictated by: Reji Lees M.D. on 07/13/2020 at 16:18 Approved by: Reji Lees M.D. on 07/13/2020 at 16:22 Labs Result Diagrams: 07/14/20 04:55 07/14/20 04:55 Labs: Laboratory Results - last 24 hr 07/14/20 07/14/20 04:55 04:55 WBC 10.3 RBC 4.38 L Hgb 14.3 Hct 41.3 MCV 94.3 MCH 32.7 MCHC 34.7 RDW 13.3 Plt Count 206 Neut % (Auto) 63.9 Lymph % (Auto) 19.8 L [place] % (Auto) 11.2 Eos % (Auto) 4.3 H Baso % (Auto) 0.8 Neut # (Auto) 6600 Lymph # (Auto) 2000 [place] # (Auto) 1200 H Eos # (Auto) 400 Baso # (Auto) 100 Sodium 144 Potassium 3.5 Chloride 101 Carbon Dioxide 37 H BUN 20 Creatinine 0.89 Estimated GFR > 60.0 BUN/Creatinine Ratio 22.5 H Glucose 97 Calcium 8.9 Phosphorus 2.0 L Magnesium 1.9 Assessment & Plan Assessment and plan (1) Chronic anticoagulation: Problem details: INR is 1.4 after reversal with FFP and vitamin K. We reversed this in case he does need an urgent operation. Status: Acute (2) Hypothyroidism: Problem details: Will continue his levothyroxine to treat his hypothyroidism. Status: Acute (3) Incisional hernia with bowel obstruction: Problem details: Patient has multiple incisional hernias of his ventral wall. The hernias are currently nontender and appeared to be nonobstructing given that he is passing gas. We will do a small-bowel follow-through today, and remove the NG tube as appropriate. I have explained to him that if he remains obstructed, or these hernias cannot be temporized for surgery at a later date, we will need to go ahead and emergently operate. This would not be optimal given that we cannot put a mesh in the setting of acute appendicitis, and his hernia will have a high chance of recurrence. He would like to avoid operation on this admission, which I think that we likely can. We will see with a small-bowel follow-through shows today and go from there. Status: Acute (4) Obesity determined by physical examination: Problem details: Will talk to him about weight loss. His BMI is 32. Status: Acute (5) Hypertension: Problem details: Patient will be continued on blood pressure medicine. Status: Acute (6) Atrial fibrillation: Problem details: Has been tachy to the 1 teens at times, still on his baseline metoprolol and as needed IV metoprolol. Hospitalist is following. Status: Acute (7) Acute appendicitis: Problem details: Right lower quadrant tenderness has resolved. White count and left shift have resolved. Procalcitonin is 0.47. He has been on Zosyn for 3 days. Once he is able to take p.o. he can be switched to p.o. antibiotic. Qualifiers: Acute appendicitis type: unspecified acute appendicitis type Qualified Code(s): K35.80 - Unspecified acute appendicitis Status: Acute Assessment & Plan narrative: This is a 70-year-old man who is on hospital day 4 admitted for acute appendicitis an obstructing ventral hernias. He is currently not having any pain, his white count has resolved, and his hernias appear mostly reduced. His epigastric hernia appears chronically incarcerated but not tender or obstructed. NGT is out, he is ambulating, tolerating clears, and passing gas and stool. He is still having intermittent tachycardia. He is feeling bloated and not confidently taking PO beyond clears. We will hold off on his discharge, keep him on full liquids as tolerated, and repeat an xray of the abdomen. Plan: Lovenox DVT prophylaxis Continue Zosyn for now clears/fulls as tolerated Ambulate repeat abdominal xray COVID-19 COVID-19 status: Negative Result date/Date tested (Pos, Neg/Pending): 07/11/20 Time Spent With Patient Time with patient: 15-24 minutes Quality VTE Deep Vein Thrombosis/Pulmonary Embolism Present on Admission: No
--- NOTE | 2020-07-14 14:37 | DI.RAD.S_ITS ---
PROCEDURE: XR KUB INDICATIONS: equivocal return of bowel function TECHNIQUE: One view of the abdomen acquired. COMPARISON: [facility], RF, FL SMALL BOWEL FOLLOW THROUGH, 07/13/2020, 9:41. [facility], CT, CT ABDOMEN PELVIS W CON, 07/11/2020, 19:32. [facility], CR, XR ACUTE ABDOMEN SERIES, 07/12/2020, 8:55. FINDINGS: Surgical changes and devices: None. Bowel: There are persistent gas distended loops of small bowel which appears similar to or slightly decreased compared to the prior studies. There is gaseous distention throughout the colon. There is residual oral contrast material within the rectum. Soft tissues: No suspicious abdominal calcifications. Bones: No suspicious bony lesions. IMPRESSION: 1. Persistent gaseous distention of small and large bowel loops redemonstrated. Findings are compatible with a partial small bowel obstruction or ileus. Dictated by: Reji Lees M.D. on 07/14/2020 at 14:57 Approved by: Reji Lees M.D. on 07/14/2020 at 15:00
[2020-07-14] MEDS: MAGNESIUM SULFATE 2 GM/50 ML PIGGYBACK IV (16:25)
[2020-07-14] MEDS: METOCLOPRAMIDE HCL 5 MG TABLET PO ×2 (16:37→20:13)
[2020-07-14] MEDS: DOCUSATE 100 MG CAPSULE PO (20:13)
[2020-07-14] MEDS: ATORVASTATIN 20 MG TABLET PO (20:13)
[2020-07-15] VITALS (9 sets, daily range): BP systolic 97–148; BP diastolic 43–80; PULSE 60–112; RESP 16–20; TEMP 36.4–37.1; O2SAT 93–98
[2020-07-15] MEDS: ACETAMINOPHEN 325 MG TABLET 650 MG PO ×3 (00:28→11:15)
[2020-07-15 05:16] LABS: BUN Creatinine Ratio 16.1 (6-22); Blood Urea Nitrogen 15 mg/dL (9-20); Calcium 9.1 mg/dL (8.4-10.2); Carbon Dioxide 39 mmol/L (22-32); Chloride 97 mmol/L (98-107); Estimated Glomerular Filt Rate > 60.0 mL/min (>60); Glucose 101 mg/dL (80-110); HEMOLYSIS < 15 (0-50); Magnesium 2.1 mg/dL (1.6-2.3); Phosphorous 3.5 mg/dL (2.3-3.7); Potassium 3.1 mmol/L (3.4-5.1); Sodium 141 mmol/L (137-145)
[2020-07-15] MEDS: POTASSIUM CHLORIDE 20 MEQ TAB 40 MEQ PO (06:42)
[2020-07-15] MEDS: LEVOTHYROXINE 112 MCG TABLET PO (06:42)
[2020-07-15] MEDS: PIPERACILLIN-TAZO 3.375 GM/50 ML FROZ.PIGGY IV (06:44)
[2020-07-15] MEDS: METOCLOPRAMIDE HCL 5 MG TABLET PO ×2 (06:57→11:16)
[2020-07-15] MEDS: POTASSIUM CHLORIDE 30 MEQ in SODIUM CHLORIDE 0.9% 250 ML 88.333 ML IV ×2 (07:57→10:57)
--- NOTE | 2020-07-15 08:00 | PM.PN.1 ---
Subjective Subjective Date Patient Seen: 07/15/20 Time Patient Seen: 08:00 Interval history: No acute events over night. Pt was kept bc of abdominal discomfort and ongoing distension. Today he feels much better, and continues to tolerate PO and pass gas/stool. Exam Vital Signs (past 8 hours): - 07/15/20 01:00 07/15/20 04:45 07/15/20 05:00 Temperature 98.5 F Pulse Rate 86 Respiratory Rate 16 Blood Pressure 148/71 H Pulse Oximetry 93 93 93 07/15/20 07:05 07/15/20 07:16 Temperature 97.9 F Pulse Rate 86 112 H Respiratory Rate 16 20 Blood Pressure 131/79 Pulse Oximetry 93 97 Oxygen Delivery Method Room Air Oxygen Flow Rate 0 Narrative Exam Narrative: GENERAL: Alert, comfortable. Appears stated age. Answers questions promptly and appropriately. Vital signs noted. HENT: Normocephalic, atraumatic. Hearing intact. EYES: Conjunctiva pink, sclera white, no periorbital swelling. CARDIOVASCULAR: Regular rate. No pedal edema. RESPIRATORY: Non-tachypneic, breathing comfortably on room air. GASTROINTESTINAL: Abdomen soft and non-distended, nontender. Midline hernia spots are currently nontender and the supraumbilical hernia is completely reduced. The epigastric hernia is nontender and partially reduced, c/w his baseline. GENITALURINARY: No flank tenderness. MUSCULOSKELETAL: Equal tone and mass bilaterally. SKIN: Warm, dry, soft, appropriate color for ethnicity. No other lesions, rashes, or wounds. NEURO: Alert and Oriented X 3. No gross sensory deficits, or cognitive issues. PSYCH: Appropriate affect and mood. Objective Labs Result Diagrams: 07/14/20 04:55 07/15/20 04:35 Labs: Laboratory Results - last 24 hr 07/15/20 04:35 Sodium 141 Potassium 3.1 L Chloride 97 L Carbon Dioxide 39 H BUN 15 Creatinine 0.93 Estimated GFR > 60.0 BUN/Creatinine Ratio 16.1 Glucose 101 Calcium 9.1 Phosphorus 3.5 D Magnesium 2.1 Assessment & Plan Assessment and plan (1) Chronic anticoagulation: Problem details: INR is 1.4 after reversal with FFP and vitamin K. Will restart coumadin at home. Status: Acute (2) Hypothyroidism: Problem details: Will continue his levothyroxine to treat his hypothyroidism. Status: Acute (3) Incisional hernia with bowel obstruction: Problem details: Hernias are much better and not obstructing. Will plan on elective repair as outpatient. Status: Acute (4) Obesity determined by physical examination: Problem details: I talked with him about weight loss. His BMI is 32. Goal to lose 20 lbs. Status: Acute (5) Hypertension: Problem details: continuing home bp med Status: Acute (6) Atrial fibrillation: Problem details: Tachycardia is improved. Will continue usual meds at home. Status: Acute (7) Acute appendicitis: Problem details: Right lower quadrant tenderness has resolved. White count and left shift have resolved. Procalcitonin is 0.47. He has been on Zosyn for 4 days. Will go home on Augmentin for ten days. Qualifiers: Acute appendicitis type: unspecified acute appendicitis type Qualified Code(s): K35.80 - Unspecified acute appendicitis Status: Acute Assessment & Plan narrative: This is a 70-year-old man who is on hospital day 5 admitted for acute appendicitis an obstructing ventral hernias. He denies pain, his white count has resolved, and his hernias are reduced to their normal baseline. His epigastric hernia appears chronically incarcerated but not tender or obstructed. He is tolerating full liquid diet, and passing gas and stool. He has been confidently taking fulls, and continues to pass gas and stool. He feels better about going home and will come to see me this week. Plan: Lovenox DVT prophylaxis Continue Zosyn until DC full liquid diet ambulate Potassium repletion dispo once K riders are complete COVID-19 COVID-19 status: Negative Result date/Date tested (Pos, Neg/Pending): 07/11/20 Time Spent With Patient Time with patient: 15-24 minutes Quality VTE Deep Vein Thrombosis/Pulmonary Embolism Present on Admission: No
--- NOTE | 2020-07-15 08:05 | CM.DPC ---
Addendum entered by JORGE Fortune 07/15/20 13:23: ADD: Per Surgeon, pt stable for d/c home today after IV potassium infuses and close follow up with her in the outpt setting for later this week. SW met bedside with pt and spouse and explained role and provided them with pt's Medicare Rights and pt acknowledged understanding and requested spouse sign his Medicare Message. Both confirm that they are agreeable with plan to d/c home today and request staff support with scheduling follow up appt with Surgeon Dr. Vega for . SW requested BIOGEOGRAPHER to schedule with surgeon and BIOGEOGRAPHER kindly agreed and secured appt for pt on 07/18/20 at 0930am and updated RN who provided to pt during d/c instructions. Plan: Patient to d/c home today via spouse POV and f/u appt with Dr. Vega this . JORGE Fortune Original Note: DCP Cont: Per Surgeon, NGT is out, he is ambulating, tolerating clears, and passing gas and stool. He is still having intermittent tachycardia. He is feeling bloated and not confidently taking PO beyond clears. We will hold off on his discharge, keep him on full liquids as tolerated, and repeat an xray of the abdomen. Per xray, shows partial SBO or obstruction. Patient d/c was cancelled yesterday and pt remained overnight. Plan: SW to follow closely after Surgeon rounds today to determine if any further intervention needed or ongoing conservative tx prior to d/c home with supportive spouse. JORGE Fortune
[2020-07-15] MEDS: hydroCHLOROthiazide 25 MG TABLET PO (08:42)
[2020-07-15] MEDS: METOPROLOL IR 50 MG TABLET PO (08:42)
[2020-07-15] MEDS: ENOXAPARIN 40 MG/0.4 ML SYRINGE SUBCUT (08:42)
[2020-07-15] MEDS: GABAPENTIN 300 MG CAPSULE PO (08:42)
[2020-07-15] MEDS: DOCUSATE 100 MG CAPSULE PO (08:42)
[2020-07-15] MEDS: lisinopriL 20 MG TABLET 40 MG PO (08:42)
[2020-07-15] MEDS: AMLODIPINE 5 MG TABLET 10 MG PO (08:43)
--- NOTE | 2020-07-15 12:01 | PC.NURSE ---
Day shift note: Discharge instructions given to patient, discussed importance of F/U with Dr. Vega on Jul 18, antibiotic adherence, dietary changes, and s/sx of infection. Both patient and spouse verbalized understanding of instructions. Home via private vehicle with spouse.
[2020-07-15] MEDS: POTASSIUM CHLORIDE 20 MEQ/15 ML UDC PO (12:14)
== END 2020-07-15 12:45 | disposition home or self-care (01) | DRG 394 ==
LOC: ED 20:21 → AC 07-12 08:24
PROVIDERS: Nurse Practitioner Adult Health; Surgery; Admitting Provider Specialist; Emergency Provider Emergency Medicine; PCP Internal Medicine; Referring Provider Emergency Medicine; Visit Provider Specialist
DX: K43.0 Incisional hernia with obstruction, without gangrene (principal); K35.80 Unspecified acute appendicitis; I48.20 Chronic atrial fibrillation, unspecified; Z79.01 Long term (current) use of anticoagulants; E66.9 Obesity, unspecified; Z68.32 Body mass index [BMI] 32.0-32.9, adult; I10 Essential (primary) hypertension; E03.9 Hypothyroidism, unspecified; J45.909 Unspecified asthma, uncomplicated; Z87.891 Personal history of nicotine dependence; Z11.59 Encounter for screening for other viral diseases; E78.00 Pure hypercholesterolemia, unspecified; M15.0 Primary generalized (osteo)arthritis
CPT/HCPCS: 36415; 36430; 36592; 71045; 74018; 74022; 74177; 74250; 80048; 80053; 80061; 83690; 83735; 84100; 84145; 84439; 84443; 85025; 85610; 85730; 86900; 86901; 86927; 87635; 93005; 94760; 96361; 96365; 99222; 99231; 99232; 99238; 99284; P9016; J1650; J2405; J2543; J3430; J3480; Q9967

== ENCOUNTER → 2021-04-10 15:06 | Outpatient (CLI) | payer MEDICARE, OTHER, SELFPAY ==
[2020-07-15 10:07] VITALS: BMI 32.3
[2021-04-10 15:37] LABS: COVID19 -Nasal RAPID Negative (Negative)
== END ==
PROVIDERS: PCP Internal Medicine; Visit Provider Physician Assistant
DX: Z20.822 Contact with and (suspected) exposure to COVID-19 (principal); J02.9 Acute pharyngitis, unspecified
CPT/HCPCS: 87070; 87635

== ENCOUNTER → 2021-06-30 09:09 | Outpatient (CLI) | payer MEDICARE, OTHER, SELFPAY ==
[2020-07-15 10:07] VITALS: BMI 32.3
[2021-06-30 10:24] LABS: BUN Creatinine Ratio 18.1 (6-22); Blood Urea Nitrogen 19 mg/dL (9-20); Estimated Glomerular Filt Rate > 60.0 mL/min (>60)
== END ==
PROVIDERS: PCP Internal Medicine; Referring Provider Otolaryngology; Visit Provider Otolaryngology
DX: H91.91 Unspecified hearing loss, right ear (principal); H81.4 Vertigo of central origin
CPT/HCPCS: 36415; 82565; 84520

== ENCOUNTER → 2021-07-01 07:00 | Outpatient (CLI) | payer MEDICARE, OTHER, SELFPAY ==
[2020-07-15 10:07] VITALS: BMI 32.3
--- NOTE | 2021-07-01 | DI.MRI.S_ITS ---
PROCEDURE: MR BRAIN (IAC) WWO CON INDICATIONS: Labyrinthitis, right ear TECHNIQUE: Noncontrast sagittal T1 spin echo, axial FLAIR, axial gradient echo, axial diffusion and ADC through the brain. Axial thin-slice 3D CISS, coronal TruFISP, axial T1 spin echo with fat saturation through the internal auditory canals. After the administration of contrast, thin slice axial and coronal T1 spin echo with fat saturation through the internal auditory canals, and axial T1 spin echo with fat saturation through the brain. COMPARISON: None. FINDINGS: Image quality: Excellent. Cerebellopontine angles: No cerebellopontine angle masses. Inner ear structures appear normally formed. No suspicious enhancement in the internal auditory canal or along the course of the 7th cranial nerve. CSF spaces: Ventricles are normal in size and shape. No extra-axial fluid collections. Basal cisterns are patent. Brain: No intracranial bleeds or mass effects there is mild diffuse cerebral volume loss. There is a mild degree of patchy high FLAIR signal within the periventricular and subcortical white matter.. Monzon-white matter interface is intact. No abnormal intracranial enhancement. Diffusion weighted images demonstrate no acute ischemic insults. Brainstem appears normal. Normal intravascular flow voids are present. Skull and face: Calvarial marrow signal is normal. Orbits appear normal. Sinuses: Sinuses are clear. Moderate right and small amount of left mastoid fluid. IMPRESSION: 1. Negative evaluation of the internal auditory canals. 2. Mild volume loss and small vessel ischemic disease. 3. No acute process. No recent infarct. 4. Right greater than left mastoiditis. Dictated by: Rosalba Bass M.D. on 07/01/2021 at 9:01 Approved by: Rosalba Bass M.D. on 07/01/2021 at 9:04
== END ==
PROVIDERS: PCP Internal Medicine; Referring Provider Otolaryngology; Visit Provider Otolaryngology
DX: R42 Dizziness and giddiness (principal); H83.01 Labyrinthitis, right ear; H70.93 Unspecified mastoiditis, bilateral
CPT/HCPCS: 70553